=== PATIENT | female | born 1950 | race Caucasian/White ===

== ENCOUNTER → 2021-03-07 | Outpatient (CLI) | payer MEDICARE, MEDICAID, SELFPAY ==
[2021-03-13 22:06] LABS: Chlamydia By Nucleic Acid AMP Negative (Negative)
[2021-03-14 09:28] LABS: HPV APTIMA, High Risk Negative (Negative)
[2021-03-14 09:32] LABS: Gonococcus By Nucleic Acid AMP Negative (Negative)
== END | disposition home or self-care (01) ==
LOC: LABSPEC 15:15
PROVIDERS: PCP Family Medicine; Visit Provider Nurse Practitioner Women's Health
DX: N95.0 Postmenopausal bleeding (principal); Z12.4 Encounter for screening for malignant neoplasm of cervix
CPT/HCPCS: 87491; 87591; 87624; 88175; G0145

== ENCOUNTER → 2021-03-16 12:16 | Outpatient (CLI) | payer MEDICARE, MEDICAID, SELFPAY ==
--- NOTE | 2021-03-16 12:18 | US_ITS ---
STUDY: ULTRASOUND OF THE FEMALE PELVIS - COMPLETE REASON FOR EXAM: Female, 71 years old. PMB LMP: TECHNIQUE: Transabdominal and transvaginal TECHNICAL QUALITY: Adequate. COMPARISON: None. FINDINGS: The uterus is anteverted and is in a midline position. The uterus measures 8.2 x 5.5 x 3.6 cm. Normal uterine cervix. The endometrium measures 6.1 mm in thickness, and is hyperechoic. There is questionable endometrial nodule versus submucosal fibroid measuring 1.4 x 1.6 x 1.2 cm. There is no demonstrated myometrial mass. I.U.D. - The patient does not have an I.U.D. The right ovary is visualized. The right ovary measures 3.4 x 1.3 x 2.4 cm. There is no right ovarian cyst or ovarian mass. There is no visualized right adnexal mass or complex lesion. There is normal arterial and normal venous vascularity. The left ovary is visualized. The left ovary measures 2.3 x 1.9 x 1.4 4 cm. There is no left ovarian cyst or ovarian mass. There is no visualized left adnexal mass or complex lesion. There is normal arterial and normal venous vascularity. There is no fluid in the cul-de-sac. US/Transvaginal Non- IMPRESSION: Possible endometrial polyp versus submucosal fibroid measuring approximately 1.4 x 1.6 x 1.2 cm. MRI with contrast may be helpful for further evaluation if clinically warranted Electronically Signed: Bubba Velasquez MD at 16:53 EDT , Service support ,
--- NOTE | 2021-03-16 12:18 | US_ITS ---
STUDY: ULTRASOUND OF THE FEMALE PELVIS - COMPLETE REASON FOR EXAM: Female, 71 years old. PMB LMP: TECHNIQUE: Transabdominal and transvaginal TECHNICAL QUALITY: Adequate. COMPARISON: None. FINDINGS: The uterus is anteverted and is in a midline position. The uterus measures 8.2 x 5.5 x 3.6 cm. Normal uterine cervix. The endometrium measures 6.1 mm in thickness, and is hyperechoic. There is questionable endometrial nodule versus submucosal fibroid measuring 1.4 x 1.6 x 1.2 cm. There is no demonstrated myometrial mass. I.U.D. - The patient does not have an I.U.D. The right ovary is visualized. The right ovary measures 3.4 x 1.3 x 2.4 cm. There is no right ovarian cyst or ovarian mass. There is no visualized right adnexal mass or complex lesion. There is normal arterial and normal venous vascularity. The left ovary is visualized. The left ovary measures 2.3 x 1.9 x 1.4 4 cm. There is no left ovarian cyst or ovarian mass. There is no visualized left adnexal mass or complex lesion. There is normal arterial and normal venous vascularity. There is no fluid in the cul-de-sac. US/Pelvic (Non ) IMPRESSION: Possible endometrial polyp versus submucosal fibroid measuring approximately 1.4 x 1.6 x 1.2 cm. MRI with contrast may be helpful for further evaluation if clinically warranted Electronically Signed: Bubba Velasquez MD at 16:53 EDT , Service support ,
== END ==
PROVIDERS: PCP Family Medicine; Referring Provider Nurse Practitioner Women's Health; Visit Provider Nurse Practitioner Women's Health
DX: N95.0 Postmenopausal bleeding (principal)
CPT/HCPCS: 76830; 76856

== ENCOUNTER 2021-04-17 12:49 | Day surgery (SDC) | payer MEDICARE, MEDICAID, SELFPAY ==
--- NOTE | 2021-04-13 10:58 | EKG12_ITS ---
Test Reason : PREOP Blood Pressure : / mmHG Vent. Rate : 079 BPM Atrial Rate : 079 BPM P-R Int : 150 ms QRS Dur : 092 ms QT Int : 394 ms P-R-T Axes : 058 -01 027 degrees QTc Int : 451 ms Sinus rhythm with Premature atrial complexes Low voltage QRS Borderline ECG Confirmed by JOSÉ LUIS YEUNG, KRISTIAN ([id number]), editor book PARUL BECK ([id number]) on 04/13/2021 1:44:40 PM Referred By: Ayanna Higgins Confirmed By:KRISTIAN ORDONEZ MD
[2021-04-13 12:07] LABS: Hematocrit 42.8 % (37-47); Hemoglobin 13.9 g/dL (12.0-15.0); Mean Corp Hgb Conc 32.5 g/dL (32-36); Mean Corpuscular Hgb 30.3 pg (27.0-32.0); Mean Corpuscular Volume 93.2 fL (81-99); Mean Platelet Vol. 10.3 fl (6.2-12.0); Platelet Count 325 K/mm3 (150-450); RBC Distribution Width CV 13.5 % (11.6-14.6); RBC Distribution Width SD 46.1 fl (35.1-43.9); Red Blood Count 4.59 M/mm3 (4.2-5.4); White Blood Count 5.3 K/mm3 (4.4-11.0)
[2021-04-13 12:45] LABS: ALB/GLOB Ratio 0.9 RATIO (0.9-2.4); AST(SGOT) 18 U/L (15-37); Alanine Aminotransfer ALT/SGPT 32 U/L (13-56); Albumin, Serum 3.8 g/dL (3.2-5.0); Alkaline Phosphatase 65 U/L (45-117); Anion Gap 7 (5-15); BUN 25 mg/dL (7-18); Calcium,Total 9.3 mg/dL (8.5-10.1); Chloride 108 mmol/L (98-107); Creatinine, Serum 0.81 mg/dL (0.55-1.02); EST Glomerular Filtration Rate 74 mL/min (>60); Est Glom Filt Rate - Afr Amer 90 mL/min (>60); Globulin 4.4 g/dL (2.2-4.2); Glucose 96 mg/dL (74-106); Potassium 3.9 mmol/L (3.5-5.1); Protein, Total 8.2 g/dL (6.4-8.2); Sodium Level 140 mmol/L (136-145)
[2021-04-17] VITALS (7 sets, daily range): BP systolic 109–151; BP diastolic 56–80; PULSE 59–77; RESP 16–18; TEMP 36.2–36.8; O2SAT 99–100; BMI 29.3
--- NOTE | 2021-04-17 | EMB_PTH ---
PATIENT: CHANDU EDWARDS [place] [facility] [place][id number] AGE/SX: 71/F ROOM: RE04/17/[address]: Dr. Ayanna Higgins MD : 1950 BED: DIS: 04/17/2021 SPEC #: [id number] RECD: 04/18/21 07:31 STATUS: RENE MOSCOSO #: [id number] SERGIO: 04/17/21 00:[address]: Ayanna Higgins DEPT: SURGICAL PATHOLOGY RECD BY: Chapito Brown ENTERED: 04/18/21 09:41 SP TYPE: ENDOM BX/C OTHR DR: Dr. Daysi Oviedo, DO Tissues: Endometrium, NOS Procedures: Surgery Specimen Level IV HEADER OPERATION: Hysteroscopy, D & C Symphion PRE-OP DIAGNOSIS: Postmenopausal bleeding TISSUE SUBMITTED: Endometrial curettings, polyp MICROSCOPIC DIAGNOSIS Endometrial polyp and curettings: Endometrial adenocarcinoma, endometrioid type, FIGO I. AM:wandy 04/24/2021 COMMENT Case is reviewed in consultation with Dr. Cosme of [employer] who concurs with the diagnosis. Consultative report is viewable in EMR. Case has been reviewed in consultation with Dr. Cordova who concurs with the above diagnosis. CLAUDIA:EDENILSON MICROSCOPIC DESCRIPTION Slides are reviewed. GROSS DESCRIPTION Received in fixative is one container labeled with the patient's name and designated endometrial curettings and polyps. The specimen consists of multiple irregular fragments of grimm soft tissue mixed with two fragments of hemorrhagic soft tissue that in aggregate measure 7.5 x 3 x 0.3 cm. The specimen is totally submitted in three cassettes. / EDENILSON:wandy 04/18/21 TC:0 CPT: 95304
[2021-04-17] MEDS: Lactated Ringers 1,000 ML 100 ML IV (13:14)
--- NOTE | 2021-04-17 14:06 | PCM.HP.BLA ---
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 Is patient in pain?: No Allergies No Known Allergies Allergy (Verified 04/04/21 11:29) Medications alendronate 70 mg tablet 70 mg PO QWEEK 03/07/21 [History Confirmed 04/04/21] Is last menstrual period known: No Post menopausal: Yes Patient : No : No PFSH Medical History Osteopenia Surgical History H/O tubal ligation Family History Father Cancer, Onset Age: 57 Lung Mother Heart disease Sister Colon cancer Sister Breast cancer Sister Breast cancer Social History household members: significant other number of children: 3 current occupational status: retired Smoking Status: Never smoker seatbelt use: always do you feel safe at home: Yes HPI Discuss surgical options Details: CHANDU EDWARDS is a 71 year old who presents for episode of postmenopausal bleeding lasting a few days when she was in [place] for the winter, and then it happened again little bit intermittently for the last few months and this increased enough to feel like a period, she was feeling bloating, cramping and had breast tenderness. she never filled a pad an hour. she has had less bleeding lately and no significant symptoms. Female Reproductive History Menopausal Symptoms: No hot flashes, No night sweats, No difficulty concentrating and No change in libido Pregancy History 3 Elective abortions Hx Para Spontaneous abortions Hx # Term Pregnancies Ectopic pregnancies Hx # Pregnancies Multiple births # of living children ROS Const Constitutional: Denies fatigue, night sweats, weight gain or weight loss ENT ENT: Reports system reviewed and no additional complaints, except as documented Cardio Card: Denies chest pain Resp Resp: Denies cough or dyspnea GI GI: Reports as per HPI; Denies constipation, nausea or vomiting : Reports as per HPI; Denies hot flashes, nipple discharge, vaginal discharge, vaginal dryness, vaginal odor or vaginal pruritus Musc Musc: Denies arthralgias, back pain or muscle weakness Skin Skin/Breast: Denies alopecia, change in hair, dry skin, breast mass, breast pain, breast skin changes or nipple discharge Neuro Neuro: Reports system reviewed and no additional complaints, except as documented Psych Psych: Reports system reviewed and no additional complaints, except as documented; Denies change in libido or difficulty concentrating Endo Endo: Denies cold intolerance, excessive sweating, heat intolerance or polydipsia Sebastian/Lymph Hematologic/Lymphatic: Denies easy bleeding, Denies easy bruising and Denies lymphadenopathy Exam Const General: cooperative, healthy appearing, comfortable, no acute distress and well developed Orientation: alert HENMT Head: normal to inspection and normocephalic Ears: hearing grossly normal bilaterally and external ears normal Nose: external nose normal and nares normal Face and sinus: normal facial exam Neck Neck: normal visual inspection and no lymphadenopathy Thyroid: thyroid normal Chest Chest palpation & inspection: normal inspection of the chest Resp Effort & Inspection: normal respiratory effort Auscultation: clear to auscultation bilaterally Cardio Rate: regular rate Rhythm: regular rhythm Heart Sounds: S1 normal and S2 normal GI Inspection: normal to inspection and non-distended Palpation: soft and no hepatosplenomegaly Musc Other: gross motor intact no deficits, full bilateral strength Skin General: no rashes or lesions noted Neuro General: patient alert, patient awake, moves all extremities and no focal motor deficits Motor: muscle tone normal throughout Extrem General: normal to inspection and no pedal edema Psych Appearance: grossly normal Mental Status: mental status grossly normal Affect: normal affect Speech and Movement: speech and movement normal Coding Level of Care Code Off vis,est,level 4 Diagnoses Postmenopausal bleeding N95.0 Assessment and Plan Assessment and Plan (1) Postmenopausal bleeding: Status: Acute Comment: stenotic cervix/failed EMB. US 6mm lining. ? endometrial polyp. D&C/hysteroscopy/symphion w/SM to be scheduled Plan - Dr. Ayanna Higgins MD: After discussing the patient's diagnosis and treatment plan options, patient wishes to proceed with surgical management. I have discussed with the patient the risks, benefits, and alternatives of the procedure which include but are not limited to risks of anesthesia, bleeding, infection, possible damage to bowel, bladder, or surrounding vasculature which could lead to additional surgery to evaluate any complications. Patient agrees to procedure and wishes to proceed. ACOG/uptodate references given for additional information regarding procedure.
--- NOTE | 2021-04-17 16:04 | OP.PCM_ITS ---
Problems Associated Problem List Diagnoses (1) Postmenopausal bleeding: Report of Operation Date of Procedure: 04/17/21 Pre-Operative Diagnosis: see problem list Post-Operative Diagnosis: same Surgery/Procedure Performed:: D&C hysteroscopy using [facility] regional facilities specialist: None Type of Anesthesia: Local MAC Special Medications: none Specimen's removed: EMC Drains: none Estimated Blood Loss (mL): 50 Fluids Replaced: crystalloid Description of Procedure: Patient was prepped and draped in a normal sterile fashion under MAC anesthesia. A weighted speculum was placed in the vagina and the anterior lip of the cervix was grasped with a single-tooth tenaculum. A paracervical block was placed with 1% lidocaine. Cervix was progressively dilated to allow passage of a 5 mm hysteroscope. The lining was fully visualized and noted to have thickened appearance. Uterine sounded to 7 cm. Direct visual curettage was performed using the device , and all specimens were sent to pathology. All instruments were removed from the vagina and excellent hemostasis was noted. Patient was awoken and taken to recovery in stable condition. Grafts/Implants Used: none Complications none Admit VTE Documentation VTE Present on Admission: No VTE Mechan Device Prophylaxis: SCD's Multi Select Codes Urinary/Genital Urinary/Genital CPT Codes: 80618 Hysteroscopy,EMC, Polypectomy
--- NOTE | 2021-04-17 16:42 | PCM.DC ---
Discharge Instructions Diet Discharge Diet: No restrictions Activity Discharge Activity: Return to Normal Activity, May Shower and May Take a Tub Bath (after 1 week) May resume sexual activity in: 1-2 weeks Weight Bearing Status: Weight bearing as tolerated Lifting Restrictions: none Dressing / Incision Call your doctor if you observe: Fever of 101 or Higher, Using more than 1 pad per hour, Shortness of breath and Uncontrolled pain Follow Up Care Please Follow Up With: Ayanna Higgins MD When: Call [phone] to schedule appointment. Test Results: Test results from this visit will be discussed in further detail at your follow-up appointment, if applicable. Discharge Plan Admission Primary Reason for Your Visit: hysteroscopy Attending Provider: Ayanna Higgins Primary Care Provider: Daysi Oviedo Discharge Orders/Prescriptions Prescriptions: No Action alendronate [Fosamax] 70 mg tablet 70 mg PO DÍAZ RF: 0 misoprostol [Cytotec] 200 mcg tablet 200 mcg PO QPCHS Qty: 2 RF: 0 ascorbic acid (vitamin C) [Vitamin C] 500 mg Tablet 500 mg PO LUNCH RF: 0 cholecalciferol (vitamin D3) [Vitamin D3] 50 mcg (2,000 unit) Capsule 50 mcg PO LUNCH RF: 0 Referrals / Follow Up: Daysi Oviedo DO [Primary Care Provider] - Disposition Disposition (needs filled in before D/C Order can be placed): Home, Self Care
== END 2021-04-17 17:47 | disposition home or self-care (01) ==
LOC: SDC 12:49 → AC 12:53
PROVIDERS: PCP Family Medicine; Referring Provider Obstetrics & Gynecology; Visit Provider Obstetrics & Gynecology
PROC: 0UB98ZZ Excision of Uterus, Via Natural or Artificial Opening Endoscopic (ICD-10-PCS; CPT 58558; principal; 2021-04-17 14:45)
DX: N95.0 Postmenopausal bleeding (principal)
CPT/HCPCS: 00952; 58558; 36415; 80053; 85027; 86850; 86900; 86901; 88305; 93005; J7120; C1758; J2405

== ENCOUNTER → 2021-04-23 15:03 | Outpatient (CLI) | payer MEDICARE, MEDICAID, SELFPAY ==
[2021-04-23 15:18] LABS: Absolute Lymphocyte Count 1.69 X10^3/uL (0.83-4.51); Absolute Neutrophil Count 3.3 X10^3/uL (2.0-7.7); Basophil# 0.06 X10^3/uL; Eosinophil# 0.13 X10^3/uL; Eosinophils% 2.2 % (0-5); Hematocrit 40.5 % (37-47); Hemoglobin 13.4 g/dL (12.0-15.0); Lymphocyte # 1.69 X10^3/ul (0.83-4.51); Lymphocyte % 29.1 % (19-41); Mean Corp Hgb Conc 33.1 g/dL (32-36); Mean Corpuscular Hgb 30.2 pg (27.0-32.0); Mean Corpuscular Volume 91.4 fL (81-99); Mean Platelet Vol. 9.7 fl (6.2-12.0); Monocyte# 0.57 X10^3/uL; Monocyte% 9.8 % (0-10); NRBC Flagged by Analyzer 0 % (0-5); Neutrophil # 3.32 X10^3/uL (2.7-7.7); Neutrophil % 57.4 % (47-70); Platelet Count 319 K/mm3 (150-450); RBC Distribution Width CV 13.4 % (11.6-14.6); RBC Distribution Width SD 45.1 fl (35.1-43.9); Red Blood Count 4.43 M/mm3 (4.2-5.4); White Blood Count 5.8 K/mm3 (4.4-11.0)
== END ==
PROVIDERS: PCP Family Medicine; Referring Provider Nurse Practitioner Women's Health; Visit Provider Nurse Practitioner Women's Health
DX: M85.80 Other specified disorders of bone density and structure, unspecified site (principal)
CPT/HCPCS: 36415; 85025

== ENCOUNTER → 2022-03-14 | Outpatient (CLI) | payer MEDICARE, MEDICAID, SELFPAY | END | disposition home or self-care (01) | LOC: LABSPEC 13:36 | PROVIDERS: PCP Family Medicine; Referring Provider Obstetrics & Gynecology; Visit Provider Obstetrics & Gynecology | DX: R30.0 Dysuria (principal) | CPT/HCPCS: 87086; 87088 ==

== ENCOUNTER → 2022-12-06 | Outpatient (CLI) | payer MEDICARE, SELFPAY ==
--- NOTE | 2022-12-06 18:50 | CT_ITS ---
EXAM: CT CHEST, ABDOMEN AND PELVIS WITH INTRAVENOUS CONTRAST CLINICAL INDICATION: BLADDER CA/ENDOMETRIAL CA- IV ONLY TECHNIQUE: Helically acquired images were obtained of the chest, abdomen and pelvis with intravenous contrast. This CT exam was performed using one or more of the following dose reduction techniques: automated exposure control, adjustment of the mA and/or kV according to patient size, and/or use of iterative reconstruction technique. CONTRAST: 100 cc of Isovue-370 IV. RADIATION DOSE: CTDIvol = 12.29 mGy, DLP = 2182.47 mGy-cm COMPARISON: No relevant prior studies available. FINDINGS: CHEST: LUNGS AND PLEURAL SPACES: Unremarkable. No mass. No consolidation or edema. No pleural effusion or thickening. No pneumothorax. HEART: Unremarkable. Heart size is normal. No pericardial effusion. MEDIASTINUM: Unremarkable. No mediastinal or hilar adenopathy. Esophagus is unremarkable. No hiatal hernia. THYROID: Unremarkable. No thyroid lesions. ABDOMEN: LIVER: There is diffuse low-attenuation of the liver. GALLBLADDER AND BILE DUCTS: Unremarkable. No calcified gallstones. No gallbladder distention or wall edema. No intra- or extrahepatic biliary ductal dilation. PANCREAS: Unremarkable. No focal cystic or solid mass. SPLEEN: Unremarkable. Normal size without focal cystic or solid mass. ADRENALS: Unremarkable. No nodules. KIDNEYS AND URETERS: Moderate bilateral hydroureteronephrosis. Small bilateral renal cysts. Normal renal size and position. STOMACH AND BOWEL: Scattered diverticula without diverticulitis. No stomach or bowel distention. PELVIS: APPENDIX: Normal appendix. BLADDER: Large lobulated mass measuring 4.8 x 6 x 7.5 cm involving the base of the bladder. REPRODUCTIVE: Hysterectomy. CHEST, ABDOMEN and PELVIS: INTRAPERITONEAL SPACE: Unremarkable. No ascites or other fluid collection. No free air. BONES/JOINTS: Unremarkable. No suspicious lytic or blastic abnormality. SOFT TISSUES: Unremarkable. No discrete abdominal or pelvic wall hernia. VASCULATURE: Unremarkable. Aorta is non-dilated. No aortic dissection. No obvious central pulmonary embolism although this study was not performed with the pulmonary embolism protocol. LYMPH NODES: Unremarkable. No enlarged lymph nodes. CT/CT Chest, Abd, Pel w/Contrast IMPRESSION: 1. Large lobulated mass measuring 4.8 x 6 x 7.5 cm involving the base of the bladder. 2. Moderate bilateral hydroureteronephrosis. 3. Scattered diverticula without diverticulitis. 4. Hysterectomy. 5. Fatty liver. 6. Small bilateral renal cysts. No follow-up imaging necessary. Electronically Signed: Irvin Warner MD at 16:29 EDT ,
== END | disposition home or self-care (01) ==
LOC: CT 18:36
PROVIDERS: PCP Family Medicine; Referring Provider Internal Medicine Medical Oncology; Visit Provider Internal Medicine Medical Oncology
DX: C67.9 Malignant neoplasm of bladder, unspecified (principal)
CPT/HCPCS: 71260; 74177; Q9967

== ENCOUNTER → 2022-12-11 | Outpatient (CLI) | payer MEDICARE, SELFPAY ==
--- NOTE | 2022-12-11 08:33 | MRI_ITS ---
EXAM: MR PELVIS WITHOUT AND WITH INTRAVENOUS CONTRAST CLINICAL INDICATION: MONITOR ENDOMETRIAL CA/BLADDER CA, DIFFICULTY UTINATING TECHNIQUE: Multiplanar and multisequence MR images of the pelvis without and with intravenous contrast. CONTRAST: IV 13CC CLARISCAN COMPARISON: No relevant prior studies available. FINDINGS: KIDNEYS AND URETERS: Bilateral hydroureter is partially visualized but grossly similar since recent CT. APPENDIX: Not seen but no evidence of acute appendicitis. INTRAPERITONEAL SPACE: Unremarkable. No ascites or other fluid collection. BLADDER: Large, lobular mass (with enhancement) in the posterior urinary bladder measuring 4.7 x 8.4 x 6.2 cm is unchanged since recent CT. The mass is seen encasing the left UVJ on image 19 series 9 and the right UVJ on image 21 of series 9. OVARIES: Not seen. UTERUS/CERVIX: Uterus is surgically absent. No pelvic mass or fluid collection. VAGINA: The vaginal cavity is decompressed but no obvious vaginal wall mass. BONES/JOINTS: Unremarkable. No suspicious lytic or blastic abnormality. SOFT TISSUES: Unremarkable. No pelvic wall hernia. LYMPH NODES: Unremarkable. No pelvic sidewall adenopathy. No iliac chain adenopathy. MRI/Pelvis W/WO Contrast IMPRESSION: 1. Large lobular mass of the urinary bladder, stable since most recent CT. Bilateral hydroureter indicating obstruction at the bilateral UVJ. 2. Hysterectomy. No pelvic/iliac chain adenopathy. Electronically Signed: Leandro Jackson (Brooks), at 16:29 EDT Reading Location ID and State: [facility] / [place] , Service support ,
== END | disposition home or self-care (01) ==
LOC: MRI 07:55
PROVIDERS: PCP Family Medicine; Referring Provider Internal Medicine Medical Oncology; Visit Provider Internal Medicine Medical Oncology
DX: C54.1 Malignant neoplasm of endometrium (principal); C67.9 Malignant neoplasm of bladder, unspecified
CPT/HCPCS: 72197; A9575

== ENCOUNTER 2022-12-24 15:37 | Inpatient (IN) | payer MEDICARE, SELFPAY ==
[2022-12-24 17:01] VITALS: BMI 29.0
--- NOTE | 2022-12-24 17:05 | HP.PCM_ITS ---
HPI - General General Date of Admission: 12/24/22 Date of Service: 12/24/22 Chief Complaint: bladder cancer HPI Narrative CHANDU EDWARDS, is a 72 F who presents with invasive bladder cancer bladder neck with retention of urine and bilateral hydronephrosis. This is a ffemale who about six months ago start having bleeding and in [place] she was found to have a large tumor at the bladder neck she reports having only a partial resection of this tumor in [place] by a urologist. She now was back in [place] and she saw me today and consultation I attempted the place a catheter in the bladder because on ultrasound she had retention of urine and was not successful so today she was admitted to do a complete workup a metastatic workup her take her surgery tomorrow for a cystoscopy transurethral resection bladder tumor and fully placement. I suspect she has invasive cancer and will probably benefit from definitive cystectomy. [facility] Medical History Bladder mass GERD (gastroesophageal reflux disease) History of cardiac murmur Hoarseness Hyperlipidemia Kidney stone Non-smoker Osteopenia Home Medications alendronate 70 mg tablet (Fosamax) 70 mg PO DÍAZ 03/07/21 [History Last Taken Unknown] cholecalciferol (vitamin D3) 50 mcg (2,000 unit) capsule (Vitamin D3) 50 mcg PO LUNCH supplement 04/12/21 [History Last Taken Unknown] cranberry fruit concentrate 250 mg chewable tablet (Azo Cranberry) 500 mg PO DAILY 12/04/22 [History Last Taken Unknown] ibuprofen 200 mg tablet (Advil) 200 mg PO Q6H PRN 12/04/22 [History Last Taken Unknown] naproxen sodium 220 mg capsule (Aleve) 220 mg PO BID PRN 12/04/22 [History Last Taken Unknown] Allergy/AdvReac Type Severity Reaction Status Date / Time No Known Allergies Allergy Verified 12/16/22 15:05 Family History Father Cancer, Onset Age: 57 Lung Mother Heart disease Osteopetrosis Sister Colon cancer Sister Breast cancer Sister Breast cancer Brother Cancer lung Surgical History H/O tubal ligation History of colonoscopy History of cystoscopy History of hysterectomy S/P dilation and curettage (~04/17/21) Social History household members: significant other number of children: 3 current occupational status: retired Smoking Status: Never smoker alcohol intake: never substance use type: does not use caffeine: Yes what type of physical activity do you participate in: walking seatbelt use: always do you feel safe at home: Yes additional social history: retired- [employer] ROS Genitourinary Genitourinary: Reports hematuria and urinary incontinence Physical Exam Const alert and oriented x3 General Appearance: cooperative HEENT normocephalic, head/scalp atraumatic, EAC's normal and TM's normal bilaterally Eyes PERRL and EOMs intact bilaterally Pupil: sluggish Neck no lymphadenopathy, supple and no JVD General: trachea midline Lymph Lymphatic: no lymphadenopathy noted, lymphedema and lymphadenopathy Resp normal respiratory effort, normal air movement and clear to auscultation bilaterally Cardio regular rate, regular rhythm and peripheral pulses 2+ throughout GI soft to palpation, non-tender and non-distended Extremity normal capillary refill and no clubbing, cyanosis or edema General Extremity: no tenderness to palpation of joints or extremities Skin no rashes or lesions noted General Skin Exam: turgor normal Lesions: no lesions Rashes: no rashes Neuro CN's II-XII intact bilaterally Speech: speech normal Motor Exam: strength 5/5 throughout; Negative for general weakness Psych thought process normal, cooperative and affect normal Appearance: appropriate Results Medical Records Data Attestation: I reviewed the patient's medical records Lab / Micro Data Attestation: I reviewed the patient's lab results. Assessment & Plan Assessment/Plan (1) Bladder cancer: QUALIFIERS: Bladder location: trigone Qualified Code(s): C67.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 PLAN: 72-year-old female with what appears a be invasive bladder cancer fairly fixed I bimanual exam should be admitted today for metastatic workup get a CAT scan tonight and bloodwork and ampulla benign plan for surgery tomorrow for a transurethral resection of bladder tumor and goodwin catheter placement (2) Endometrial cancer: (3) INVENTORY SPECIALIST MANAGER exam for high-risk Medicare patient: (4) Dysuria:
[2022-12-24 17:44] VITALS: BP 133/82; PULSE 73; RESP 17; TEMP 36.8; O2SAT 99
[2022-12-24 18:55] LABS: Hematocrit 35.7 % (37-47); Hemoglobin 11.2 g/dL (12.0-15.0); Mean Corp Hgb Conc 31.4 g/dL (32-36); Mean Corpuscular Hgb 30.3 pg (27.0-32.0); Mean Corpuscular Volume 96.5 fL (81-99); Mean Platelet Vol. 9.9 fl (6.2-12.0); Platelet Count 376 K/mm3 (150-450); RBC Distribution Width CV 12.6 % (11.6-14.6); White Blood Count 9.1 K/mm3 (4.4-11.0)
[2022-12-24] MEDS: 0.9% Normal Saline 1,000 ML 50 ML IV (18:58)
[2022-12-24 19:12] LABS: ALB/GLOB Ratio 0.6 RATIO (0.9-2.4); AST(SGOT) 16 U/L (15-37); Alanine Aminotransfer ALT/SGPT 14 U/L (13-56); Alkaline Phosphatase 83 U/L (45-117); Anion Gap 7 (5-15); BUN 38 mg/dL (7-18); BUN/Creat Ratio 13.1 RATIO (10-20); Calcium,Total 8.9 mg/dL (8.5-10.1); Chloride 116 mmol/L (98-107); EST Glomerular Filtration Rate 17 mL/min (>60); Est Glom Filt Rate - Afr Amer 20 mL/min (>60); Estimated Creatinine Clearance 12.41 ml/min; Globulin 4.8 g/dL (2.2-4.2); Glucose 125 mg/dL (74-106); Potassium 4.2 mmol/L (3.5-5.1); Protein, Total 7.8 g/dL (6.4-8.2); Sodium Level 144 mmol/L (136-145)
[2022-12-24 20:56] VITALS: BP 151/77; PULSE 75; RESP 16; TEMP 37.2; O2SAT 100
[2022-12-24] MEDS: Cefazolin 1 GM/50 ML BAG IV (21:09)
[2022-12-24] MEDS: Docusate Sodium 100 MG Capsule 200 MG PO (21:09)
[2022-12-24] MEDS: HYDROcodone Bitartrate/Apap 5/325 Tablet PO (23:51)
[2022-12-25] VITALS (9 sets, daily range): BP systolic 112–160; BP diastolic 51–96; PULSE 62–100; RESP 12–20; TEMP 36.7–37.2; O2SAT 87–100; BMI 29.0
[2022-12-25] MEDS: Cefazolin 1 GM/50 ML BAG IV ×2 (05:01→21:14)
--- NOTE | 2022-12-25 10:44 | CT_ITS ---
PROCEDURE: CT GUIDANCE DURING PERCUTANEOUS NEPHROSTOMY PROCEDURE. DATE OF EXAMINATION: December 25, 2022. INDICATION: Female, 72 years old. Right hydronephrosis and right hydroureter. PHYSICIAN: Morris Isaac M.D. CONSENT: The patient''s history and physical findings were reviewed. Prior to the procedure the percutaneous nephrostomy procedure as well as the benefits and possible complications including bleeding and infection were explained to the patient. Informed consent was signed. SEDATION: 3 mg of Versed and 75 mcg of fentanyl. Conscious sedation protocol was followed. The patient was independently monitored by the department nurse. Individualized dose optimization techniques were utilized. TECHNIQUE: Under CT guidance, an 8 Macedonian percutaneous nephrostomy catheter was placed into the right renal pelvis and proximal right ureter. Urine was removed. The catheter was left for gravity drainage. Following the procedure, there is a small right perinephric hematoma. CT/Nephrotube Placement CT IMPRESSION: 1. Successful right percutaneous nephrostomy catheter placement. 2. The patient tolerated the procedure well. 3. Conscious sedation protocol was followed. Electronically Signed: Morris Isaac MD at 14:28 EDT ,
--- NOTE | 2022-12-25 10:47 | PCM.PN.GU ---
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 Objective Data Objective Data Vital Signs: Vital Signs Temp Pulse Resp BP Pulse Ox O2 Del Method 98.8 F 100 18 140/81 H 100 Room Air 12/25/22 08:52 12/25/22 08:52 12/25/22 08:52 12/25/22 08:52 12/25/22 08:52 12/25/22 08:52 Oxygen Delivery Method Room Air Weight: 67.6 kg Body Mass Index (BMI) 29.0 Intake & Output: Intake and Output for Last 24 Hours 12/23/22 12/24/22 12/25/22 23:59 23:59 23:59 Intake Total 50 / 50 50 / 50 Output Total 850 / 850 Balance 50 / -250 -800 / -800 Lab / Micro Data 12/24/22 18:37 12/24/22 18:37 Labs: Laboratory Results - last 24 hr 12/24/22 18:37: WBC 9.1, RBC 3.70 L, Hgb 11.2 L, Hct 35.7 L, MCV 96.5, MCH 30.3, MCHC 31.4 L, RDW Std Deviation 45.0 H, RDW Coeff of Harrison 12.6, Plt Count 376, MPV 9.9, Sodium 144, Potassium 4.2, Chloride 116 H, Carbon Dioxide 21.0, Anion Gap 7, BUN 38 H, Creatinine 2.90 H, Estim Creat Clear Calc 12.41, Est GFR (MDRD) Af Amer 20 L, Est GFR (MDRD) Non-Af 17 L, BUN/Creatinine Ratio 13.1, Glucose 125 H, Calcium 8.9, Total Bilirubin 0.30, AST 16, ALT 14, Alkaline Phosphatase 83, Total Protein 7.8, Albumin 3.0 L, Globulin 4.8 H, Albumin/Globulin Ratio 0.6 L Physical Exam Const alert and oriented x3 General Appearance: cooperative HEENT normocephalic, head/scalp atraumatic, EAC's normal and TM's normal bilaterally Eyes PERRL and EOMs intact bilaterally Pupil: sluggish Neck no lymphadenopathy, supple and no JVD General: trachea midline Lymph Lymphatic: no lymphadenopathy noted, lymphedema and lymphadenopathy Resp normal respiratory effort, normal air movement and clear to auscultation bilaterally Cardio regular rate, regular rhythm and peripheral pulses 2+ throughout GI soft to palpation, non-tender and non-distended Extremity normal capillary refill and no clubbing, cyanosis or edema General Extremity: no tenderness to palpation of joints or extremities Skin no rashes or lesions noted General Skin Exam: turgor normal Lesions: no lesions Rashes: no rashes Neuro CN's II-XII intact bilaterally Speech: speech normal Motor Exam: strength 5/5 throughout; Negative for general weakness Psych thought process normal, cooperative and affect normal Appearance: appropriate Assessment & Plan Assessment/Plan (1) Bladder cancer: QUALIFIERS: Bladder location: trigone Qualified Code(s): C67.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
[2022-12-25] MEDS: Morphine 2 MG/ML Syringe IV ×2 (11:16→14:29)
[2022-12-25] MEDS: 0.9% Normal Saline 1,000 ML 50 ML IV (11:17)
[2022-12-25] MEDS: Ondansetron 4 MG/2 ML Vial IV (11:25)
--- NOTE | 2022-12-25 11:39 | NURSING ---
lab updated to draw stat lab work for procedure
--- NOTE | 2022-12-25 11:53 | CT_ITS ---
PROCEDURE: Left percutaneous nephrostomy. DATE OF EXAMINATION: December 25, 2022. INDICATION: Female, 72 years old. Left hydronephrosis and left hydroureter. PHYSICIAN: Dr. Poncho Paula RADIATION DOSAGE (If Supplied By Facility): CTDIvol = ( 18.99 ) mGy, DLP = ( 1743.66 ) mGycm CONSENT: The risks, benefits and alternatives to the procedure were explained to the patient, and the patient agreed to the procedure and signed the consent. SEDATION: STERILE BARRIER TECHNIQUE: The following sterile barrier precautions were used during the procedure: hand hygiene; use of 2% chlorhexidine aseptic; use of a cap, mask, sterile gown, sterile gloves, sterile full body drape, and a large sterile sheet. PROCEDURE/TECHNIQUE: (All elements of maximal sterile barrier technique followed, including US elements as applicable) The risks, benefits, and alternatives to the procedure were explained to patient, and the patient agreed to the procedure and signed a consent form for the procedure. A timeout was performed to confirm the patient''s identity, the type of procedure, to be performed and the site of entry. The procedure as well as the benefits and possible complications including infection and bleeding with sprain to the patient. Consent was signed. The patient was in the prone position. Overlying skin was prepped and draped in the usual sterile fashion. The patient received conscious sedation. The patient received 3 mg of Versed and 75 mcg of fentanyl intravenously. The patient was independently monitored by the department nurse. Following local anesthetic application, an 8 [place] percutaneous nephrostomy catheter was placed into the left renal pelvis. The catheter was secured. The patient tolerated the procedure well. CT/Nephrotube Placement CT IMPRESSION: Successful left percutaneous nephrostomy tube placement. The current sedation protocol was followed. Electronically Signed: Morris Isaac MD at 14:32 EDT ,
--- NOTE | 2022-12-25 12:01 | CASEMGMT ---
CARINA CM NOTE: Insurance review [facility] hospitals [facility] if transfer is recommended is as follows: [facility], Jackie, [facility], [facility], [facility], [facility], [facility], [facility] ([facility]), and . Rory JACKSON RN CM
[2022-12-25 12:12] LABS: International Normalized Ratio 1.2; Partial Thromboplast Time 30.5 Seconds (24.1-36.2); Prothrombin Time (Protime)PT. 14.8 SECONDS (11.7-14.9)
[2022-12-25] MEDS: Midazolam 2 MG/2 ML Syringe IV ×2 (12:30→13:33)
[2022-12-25] MEDS: fentaNYL 100 MCG/2 ML Ampul IV ×2 (12:32→13:33)
[2022-12-25] MEDS: 0.9% Saline Lock 10 ML Syringe IV ×2 (12:32→23:10)
[2022-12-25] MEDS: Lidocaine 2% (20 ml mdv) 20 ML Vial INFILT (12:42)
--- NOTE | 2022-12-25 14:12 | NURSING ---
pt remains off unit
[2022-12-25] MEDS: HYDROcodone Bitartrate/Apap 5/325 Tablet PO ×2 (17:03→23:09)
[2022-12-26 02:27] VITALS: BP 106/62; PULSE 86; RESP 16; TEMP 36.9; O2SAT 94
[2022-12-26 06:53] LABS: Hematocrit 29.4 % (37-47); Hemoglobin 9.4 g/dL (12.0-15.0); Mean Corpuscular Hgb 30.8 pg (27.0-32.0); Mean Corpuscular Volume 96.4 fL (81-99); Mean Platelet Vol. 10.1 fl (6.2-12.0); Platelet Count 312 K/mm3 (150-450); RBC Distribution Width CV 12.8 % (11.6-14.6); RBC Distribution Width SD 45.4 fl (35.1-43.9); Red Blood Count 3.05 M/mm3 (4.2-5.4); White Blood Count 9.9 K/mm3 (4.4-11.0)
[2022-12-26 07:25] LABS: Anion Gap 5 (5-15); BUN 29 mg/dL (7-18); BUN/Creat Ratio 13.6 RATIO (10-20); Calcium,Total 8.6 mg/dL (8.5-10.1); Chloride 116 mmol/L (98-107); Creatinine, Serum 2.13 mg/dL (0.55-1.02); EST Glomerular Filtration Rate 24 mL/min (>60); Est Glom Filt Rate - Afr Amer 29 mL/min (>60); Glucose 111 mg/dL (74-106); Sodium Level 142 mmol/L (136-145)
--- NOTE | 2022-12-26 07:25 | PN.URO_ITS ---
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 Spoke to the [facility] yesterday about transfer they recommended nephrostomy tube stabilization and outpatient follow-up. Patient was agreeable with this. She is clinically stable at this point nephrostomy tubes are both draining well I did secure both the tubes hopefully they will fall out. Today she can get up and walk around we will check a creatinine today we will check a creatinine tomorrow and hopefully tomorrow we can discharge her home. Objective Data Objective Data Vital Signs: Vital Signs Temp Pulse Resp BP Pulse Ox O2 Del Method O2 Flow Rate 98.4 F 86 16 106/62 94 Room Air 2 12/26/22 02:12/26/22 02:27 12/26/22 02:27 12/26/22 02:27 12/26/22 02:12/26/22 02:12/25/22 12:30 Oxygen Flow Rate (L/min) [1345 2 ] Oxygen Flow Rate (L/min) [1340 2 ] Oxygen Flow Rate (L/min) [1335 2 ] Oxygen Flow Rate (L/min) [1330 2 ] Oxygen Flow Rate (L/min) [1325 2 ] Oxygen Flow Rate (L/min) [1320 2 ] Oxygen Flow Rate (L/min) [10] 2 Oxygen Flow Rate (L/min) [9] 2 Oxygen Flow Rate (L/min) [8] 2 Oxygen Flow Rate (L/min) [7] 2 Oxygen Flow Rate (L/min) [6] 2 Oxygen Flow Rate (L/min) [5] 2 Oxygen Flow Rate (L/min) [4] 2 Oxygen Flow Rate (L/min) [3] 2 Oxygen Flow Rate (L/min) [2] 2 Oxygen Delivery Method [1345] Nasal Cannula Oxygen Delivery Method [1340] Nasal Cannula Oxygen Delivery Method [1335] Nasal Cannula Oxygen Delivery Method [1330] Nasal Cannula Oxygen Delivery Method [1325] Nasal Cannula Oxygen Delivery Method [1320] Nasal Cannula Oxygen Delivery Method [10] Nasal Cannula Oxygen Delivery Method [9] Nasal Cannula Oxygen Delivery Method [8] Nasal Cannula Oxygen Delivery Method [7] Nasal Cannula Oxygen Delivery Method [6] Nasal Cannula Oxygen Delivery Method [5] Nasal Cannula Oxygen Delivery Method [4] Nasal Cannula Oxygen Delivery Method [3] Nasal Cannula Oxygen Delivery Method [2] Nasal Cannula Oxygen Delivery Method [1 ( Room Air Initial Baseline)] Oxygen Delivery Method Room Air Weight: 67.6 kg Body Mass Index (BMI) 29.0 Intake & Output: Intake and Output for Last 24 Hours 12/24/22 12/25/22 12/26/22 23:59 23:59 23:59 Intake Total 50 / 50 1943.83 / 1943.83 Output Total 3125 / 3125 250 / 250 Balance 50 / -250 -1181.17 / -1181.17 -250 / -250 Lab / Micro Data 12/26/22 06:05 12/26/22 06:05 Labs: Laboratory Results - last 24 hr 12/25/22 11:53: PT 14.8, INR 1.2, APTT 30.5 12/26/22 06:05: WBC 9.9, RBC 3.05 L, Hgb 9.4 L, Hct 29.4 L, MCV 96.4, MCH 30.8, MCHC 32.0, RDW Std Deviation 45.4 H, RDW Coeff of Harrison 12.8, Plt Count 312, MPV 10.1, Sodium 142, Potassium 4.0, Chloride 116 H, Carbon Dioxide 21.0, Anion Gap 5, BUN 29 H, Creatinine 2.13 H, Estim Creat Clear Calc 16.90, Est GFR (MDRD) Af Amer 29 L, Est GFR (MDRD) Non-Af 24 L, BUN/Creatinine Ratio 13.6, Glucose 111 H, Calcium 8.6 Radiography Diagnostic Testing: Radiology Impression Nephrostomy Tube Change 12/25/22 10:44 IMPRESSION: 1. Successful right percutaneous nephrostomy catheter placement. 2. The patient tolerated the procedure well. 3. Conscious sedation protocol was followed. Electronically Signed: Morris Isaac MD at 14:28 EDT , Nephrostomy Tube Change 12/25/22 11:53 IMPRESSION: Successful left percutaneous nephrostomy tube placement. The current sedation protocol was followed. Electronically Signed: Morris Isaac MD at 14:32 EDT ,
[2022-12-26 07:32] VITALS: O2SAT 93
[2022-12-26] MEDS: Morphine 2 MG/ML Syringe IV ×3 (07:58→19:57)
[2022-12-26] MEDS: Docusate Sodium 100 MG Capsule 200 MG PO (07:59)
[2022-12-26] MEDS: 0.9% Normal Saline 1,000 ML 50 ML IV (08:06)
[2022-12-26 08:30] VITALS: BP 124/69; PULSE 78; RESP 16; TEMP 37.3; O2SAT 99
[2022-12-26] MEDS: Cefazolin 1 GM/50 ML BAG IV ×2 (09:31→21:57)
[2022-12-26] MEDS: HYDROcodone Bitartrate/Apap 5/325 Tablet PO ×3 (09:31→21:57)
[2022-12-26 14:30] VITALS: BP 133/71; PULSE 78; RESP 16; TEMP 36.9; O2SAT 100
--- NOTE | 2022-12-26 14:45 | CASEMGMT ---
RN?CM?AN[employer]OID [employer] DEVELOPER?CM?to room to meet with patient for initial transition planning/care coordination?assessment.?RN?CM?introduced self and role at [facility].? Pt voices understanding and consents to?assessment?at this time.? Pt resting in bed in no distress at this time.? Pt is A/O at this time and answers all questions appropriately.?? Care providers, pharmacy, and demographics verified/updated at this time. PCP: Dr Oviedo Specialists: Dr Gamble-urology, Dr Schmitz-oncology. Pt has appt scheduled w/Dr Westbrook (surgical urologist) @ [facility] 01/09/23. [facility]erred [facility]acy: [facility] Insurance: [employer] Prescription Benefit:?Yes Living Will/HPOA:?Pt does not currently have LW/HCPOA and declines info at this time.? Pt made aware that she can contact as an out-pt and make appt in the future if she decides she would like to talk with someone about this or would like to utilize [facility] social work for advanced directive completion. LNOK: 3 children. One dtr is Lovely. Sig other, Gustavo. Living Arrangements: Lives w/sig other, Gustavo, in one-story home w/one step to enter. Indep w/ADL's and IADL's and manages her own medications and appts. Transportation:?Pt does not drive. Sig other, Gustavo, provides transportation. DME: ? Denies using any DME and denies needs.? HHC/SNF: No hx of SNF. Had HHC for a couple of visits after being in the hospital in [place]. Denies need for HHC at this time. Pt wishes to return home and states has no concerns with going home at time of discharge.? CM?to follow for any discharge planning/needs.? Pt voices no further concerns/needs at this time.? Advised pt to ask for?CM?if any further questions/concerns/needs arise.? Voices understanding. PLAN:??Home Rory BSN?RN?CM
[2022-12-26] MEDS: 0.9% Saline Lock 10 ML Syringe IV (17:22)
[2022-12-26 20:05] VITALS: BP 139/79; PULSE 87; RESP 18; TEMP 37.3; O2SAT 99
--- NOTE | 2022-12-26 21:00 | PN.URO_ITS ---
Subjective Subjective Still have pain in bladder, unable to place goodwin in bladder due cancer blocking urethra completely, has a large mass in base of bladder, just had nephrostomy tubes bilaterally but having severe pain in bladder and bleeding from urethra. placed a second call to [facility] to inpatient transfer, she has been already accepted as patient by Dr rosario awaiting call back from [facility] to arrange transfer. Objective Data Objective Data Vital Signs: Vital Signs Temp Pulse Resp BP Pulse Ox O2 Del Method O2 Flow Rate 99.1 F 87 18 139/79 H 99 Room Air 2 12/26/22 20:05 12/26/22 20:05 12/26/22 20:05 12/26/22 20:05 12/26/22 20:05 12/26/22 20:05 12/25/22 12:30 Oxygen Flow Rate (L/min) [1345 2 ] Oxygen Flow Rate (L/min) [1340 2 ] Oxygen Flow Rate (L/min) [1335 2 ] Oxygen Flow Rate (L/min) [1330 2 ] Oxygen Flow Rate (L/min) [1325 2 ] Oxygen Flow Rate (L/min) [1320 2 ] Oxygen Flow Rate (L/min) [10] 2 Oxygen Flow Rate (L/min) [9] 2 Oxygen Flow Rate (L/min) [8] 2 Oxygen Flow Rate (L/min) [7] 2 Oxygen Flow Rate (L/min) [6] 2 Oxygen Flow Rate (L/min) [5] 2 Oxygen Flow Rate (L/min) [4] 2 Oxygen Flow Rate (L/min) [3] 2 Oxygen Flow Rate (L/min) [2] 2 Oxygen Delivery Method [1345] Nasal Cannula Oxygen Delivery Method [1340] Nasal Cannula Oxygen Delivery Method [1335] Nasal Cannula Oxygen Delivery Method [1330] Nasal Cannula Oxygen Delivery Method [1325] Nasal Cannula Oxygen Delivery Method [1320] Nasal Cannula Oxygen Delivery Method [10] Nasal Cannula Oxygen Delivery Method [9] Nasal Cannula Oxygen Delivery Method [8] Nasal Cannula Oxygen Delivery Method [7] Nasal Cannula Oxygen Delivery Method [6] Nasal Cannula Oxygen Delivery Method [5] Nasal Cannula Oxygen Delivery Method [4] Nasal Cannula Oxygen Delivery Method [3] Nasal Cannula Oxygen Delivery Method [2] Nasal Cannula Oxygen Delivery Method [1 ( Room Air Initial Baseline)] Oxygen Delivery Method Room Air Weight: 67.6 kg Body Mass Index (BMI) 29.0 Intake & Output: Intake and Output for Last 24 Hours 12/24/22 12/25/22 12/26/22 23:59 23:59 23:59 Intake Total 50 / 50 1943.83 / 1943.83 1050 / 1050 Output Total 3125 / 3125 450 / 450 Balance 50 / -250 -1181.17 / -1181.17 600 / 600 Lab / Micro Data 12/26/22 06:05 12/26/22 06:05 Labs: Laboratory Results - last 24 hr 12/26/22 06:05: WBC 9.9, RBC 3.05 L, Hgb 9.4 L, Hct 29.4 L, MCV 96.4, MCH 30.8, MCHC 32.0, RDW Std Deviation 45.4 H, RDW Coeff of Harrison 12.8, Plt Count 312, MPV 10.1, Sodium 142, Potassium 4.0, Chloride 116 H, Carbon Dioxide 21.0, Anion Gap 5, BUN 29 H, Creatinine 2.13 H, Estim Creat Clear Calc 16.90, Est GFR (MDRD) Af Amer 29 L, Est GFR (MDRD) Non-Af 24 L, BUN/Creatinine Ratio 13.6, Glucose 111 H, Calcium 8.6
[2022-12-26] MEDS: Oxybutynin 5 MG Tablet 10 MG PO (21:57)
--- NOTE | 2022-12-26 22:31 | NURSING ---
Spoke to Dr. Gamble again , states he called [facility], put a transfer order in. pt will be transferred to main campus when bed is available. ordered Oxybutynin and states to medicate pt morphine for pain for the mean time. made pt aware of the plan. pt is agreeable to plan.
--- NOTE | 2022-12-26 22:35 | NURSING ---
spoke to Bailee from [facility], states will need to arrange transport for pt when bed is available, states their census is high and pt will be provided with bed in timely manner. will need to send copy of pts medical record with pt upon transfer. charge nurse made aware.
[2022-12-27 02:05] VITALS: BP 124/63; PULSE 65; RESP 16; TEMP 37.1; O2SAT 96
[2022-12-27] MEDS: 0.9% Normal Saline 1,000 ML 50 ML IV (04:32)
[2022-12-27 07:20] LABS: Anion Gap 6 (5-15); BUN 21 mg/dL (7-18); BUN/Creat Ratio 11.5 RATIO (10-20); Calcium,Total 8.5 mg/dL (8.5-10.1); Chloride 112 mmol/L (98-107); Creatinine, Serum 1.83 mg/dL (0.55-1.02); EST Glomerular Filtration Rate 29 mL/min (>60); Est Glom Filt Rate - Afr Amer 35 mL/min (>60); Estimated Creatinine Clearance 19.67 ml/min; Glucose 99 mg/dL (74-106); Potassium 3.9 mmol/L (3.5-5.1); Sodium Level 140 mmol/L (136-145)
--- NOTE | 2022-12-27 07:43 | NURSING ---
called [facility] transfer center, aware pt still awaiting bed assignment, no bed at this time.
[2022-12-27 08:01] VITALS: O2SAT 97
[2022-12-27 08:10] VITALS: BP 136/86; PULSE 92; RESP 18; TEMP 36.8; O2SAT 96
[2022-12-27] MEDS: 0.9% Saline Lock 10 ML Syringe IV (09:40)
[2022-12-27] MEDS: Oxybutynin 5 MG Tablet 10 MG PO (10:04)
[2022-12-27] MEDS: Cefazolin 1 GM/50 ML BAG IV ×2 (10:04→21:28)
[2022-12-27] MEDS: Docusate Sodium 100 MG Capsule 200 MG PO ×2 (10:04→21:28)
[2022-12-27] MEDS: HYDROcodone Bitartrate/Apap 5/325 Tablet PO ×2 (13:33→23:05)
[2022-12-27 14:10] VITALS: BP 121/70; PULSE 104; RESP 18; TEMP 38.8; O2SAT 94
[2022-12-27] MEDS: Acetaminophen 325 MG Tablet PO (14:14)
--- NOTE | 2022-12-27 16:15 | NURSING ---
talked with Gladys at [facility] transfer center, aware still no bed assignment available for patient.
[2022-12-27 19:41] VITALS: BP 102/75; PULSE 88; RESP 18; TEMP 37.2; O2SAT 100
[2022-12-27] MEDS: Morphine 2 MG/ML Syringe IV (19:47)
[2022-12-28] MEDS: 0.9% Normal Saline 1,000 ML 50 ML IV ×2 (01:32→21:17)
[2022-12-28 02:54] VITALS: BP 112/69; PULSE 88; RESP 16; TEMP 36.9; O2SAT 95
[2022-12-28 08:00] VITALS: BP 109/76; PULSE 99; RESP 16; TEMP 37.2; O2SAT 94
[2022-12-28] MEDS: Morphine 2 MG/ML Syringe IV (08:02)
--- NOTE | 2022-12-28 08:02 | PCM.PN.GU ---
Subjective Subjective still awaiting transfer to [facility] for bladder cancer has bilateral neohrostomy tubes pain is better but rocio has severe bladder spasms Objective Data Objective Data Vital Signs: Vital Signs Temp Pulse Resp BP Pulse Ox O2 Del Method O2 Flow Rate 98.5 F 88 16 112/69 95 Room Air 2 12/28/22 02:54 12/28/22 02:54 12/28/22 02:54 12/28/22 02:54 12/28/22 02:54 12/28/22 02:54 12/25/22 12:30 Oxygen Flow Rate (L/min) [1345 2 ] Oxygen Flow Rate (L/min) [1340 2 ] Oxygen Flow Rate (L/min) [1335 2 ] Oxygen Flow Rate (L/min) [1330 2 ] Oxygen Flow Rate (L/min) [1325 2 ] Oxygen Flow Rate (L/min) [1320 2 ] Oxygen Flow Rate (L/min) [10] 2 Oxygen Flow Rate (L/min) [9] 2 Oxygen Flow Rate (L/min) [8] 2 Oxygen Flow Rate (L/min) [7] 2 Oxygen Flow Rate (L/min) [6] 2 Oxygen Flow Rate (L/min) [5] 2 Oxygen Flow Rate (L/min) [4] 2 Oxygen Flow Rate (L/min) [3] 2 Oxygen Flow Rate (L/min) [2] 2 Oxygen Delivery Method [1345] Nasal Cannula Oxygen Delivery Method [1340] Nasal Cannula Oxygen Delivery Method [1335] Nasal Cannula Oxygen Delivery Method [1330] Nasal Cannula Oxygen Delivery Method [1325] Nasal Cannula Oxygen Delivery Method [1320] Nasal Cannula Oxygen Delivery Method [10] Nasal Cannula Oxygen Delivery Method [9] Nasal Cannula Oxygen Delivery Method [8] Nasal Cannula Oxygen Delivery Method [7] Nasal Cannula Oxygen Delivery Method [6] Nasal Cannula Oxygen Delivery Method [5] Nasal Cannula Oxygen Delivery Method [4] Nasal Cannula Oxygen Delivery Method [3] Nasal Cannula Oxygen Delivery Method [2] Nasal Cannula Oxygen Delivery Method [1 ( Room Air Initial Baseline)] Oxygen Delivery Method Room Air Weight: 67.6 kg Body Mass Index (BMI) 29.0 Intake & Output: Intake and Output for Last 24 Hours 12/26/22 12/27/22 12/28/22 23:59 23:59 23:59 Intake Total 1100 / 1100 1946.67 / 1946.67 153.33 / 153.33 Output Total 850 / 850 1380 / 1380 570 / 570 Balance 250 / 250 566.67 / 566.67 -416.67 / -416.67 Lab / Micro Data 12/26/22 06:05 12/27/22 06:05 Radiography Diagnostic Testing: Radiology Impression Nephrostomy Tube Change 12/25/22 11:53 IMPRESSION: Successful left percutaneous nephrostomy tube placement. The current sedation protocol was followed. Electronically Signed: Morris Isaac MD at 14:32 EDT , ADDENDUM: 12/27/22 1445 IMPRESSION: undefined
[2022-12-28 08:07] VITALS: O2SAT 95
[2022-12-28] MEDS: HYDROcodone Bitartrate/Apap 5/325 Tablet PO ×3 (09:09→23:58)
[2022-12-28] MEDS: Cefazolin 1 GM/50 ML BAG IV ×2 (09:49→21:16)
[2022-12-28] MEDS: Docusate Sodium 100 MG Capsule 200 MG PO ×2 (09:50→21:15)
[2022-12-28] MEDS: Oxybutynin 5 MG Tablet 10 MG PO (09:51)
--- NOTE | 2022-12-28 10:11 | PCM.PN.BLA ---
Progress Note 72-year-old female with aggressive bladder cancer carcinoma bilateral stents are in place draining a little bit less urine but still draining some urine. She still having severe abdominal pain off-and-on so we will hold off on discharge we are awaiting transfer to the [facility] I put a call in 2 days ago and they accepted her as a patient hopefully over the weekend this will happen. For now we will keep her on low-dose Lovenox to prevent blood clots again to check a BMP today she is clinically stable otherwise okay to get around and shower etc.
[2022-12-28 11:32] LABS: Anion Gap 10 (5-15); BUN 15 mg/dL (7-18); BUN/Creat Ratio 9.6 RATIO (10-20); Calcium,Total 8.6 mg/dL (8.5-10.1); Chloride 106 mmol/L (98-107); Creatinine, Serum 1.56 mg/dL (0.55-1.02); EST Glomerular Filtration Rate 35 mL/min (>60); Est Glom Filt Rate - Afr Amer 42 mL/min (>60); Estimated Creatinine Clearance 23.07 ml/min; Glucose 117 mg/dL (74-106); Potassium 3.4 mmol/L (3.5-5.1); Sodium Level 138 mmol/L (136-145)
[2022-12-28 14:00] VITALS: BP 114/69; PULSE 98; RESP 16; TEMP 37.2; O2SAT 97
--- NOTE | 2022-12-28 20:12 | NURSING ---
Report called to CARINA Martinez at [facility]. Patient is being sent to G90 bed 29 at [facility]. Phone number for that unit is [phone]. This RN told CARINA Martinez that I will call when patient leaves our facility.
[2022-12-28 21:11] VITALS: BP 125/69; PULSE 101; RESP 18; TEMP 37.7; O2SAT 94
[2022-12-28] MEDS: Acetaminophen 325 MG Tablet PO (21:15)
[2022-12-28] MEDS: Ondansetron 4 MG/2 ML Vial IV (21:22)
[2022-12-28] MEDS: 0.9% Saline Lock 10 ML Syringe IV ×2 (22:13→23:37)
[2022-12-28 23:38] VITALS: BP 130/72; PULSE 93; RESP 18; TEMP 36.9; O2SAT 98
--- NOTE | 2022-12-28 23:51 | NURSING ---
This RN called G90 at [facility] ([phone]) to let them know that patient is on her way.
== END 2022-12-28 23:45 | disposition short-term general hospital (02) | DRG 688 ==
PROVIDERS: Radiology Diagnostic Radiology; Admitting Provider Urology; PCP Family Medicine; Visit Provider Urology
DX: C67.0 Malignant neoplasm of trigone of bladder (principal); C54.1 Malignant neoplasm of endometrium; E78.5 Hyperlipidemia, unspecified; Z79.83 Long term (current) use of bisphosphonates; Z80.3 Family history of malignant neoplasm of breast; Z80.0 Family history of malignant neoplasm of digestive organs; N32.89 Other specified disorders of bladder
CPT/HCPCS: 36415; 50432; 80048; 80053; 85027; 85610; 85730; 94668; 99156; 99157; 99252; J7030; A4216; G0463; J2405

== ENCOUNTER 2023-05-07 12:06 | Observation (INO) | payer MEDICARE, SELFPAY ==
[2023-05-07] VITALS (7 sets, daily range): BP systolic 99–121; BP diastolic 65–88; PULSE 95–123; RESP 16–20; TEMP 37.2–39.3; O2SAT 95–99; BMI 26.9; BMI 25.8
--- NOTE | 2023-05-07 12:27 | MRI_ITS ---
STUDY: MRI LUMBAR SPINE WITH AND WITHOUT CONTRAST REASON FOR EXAM: Female, 73 years old. leg weakness -- recent bladder CA, new leg weakness on left bilateral leg weakness, bladder CA DX 02/05, increased temp, difficulty walking, has nephro tube and port TECHNIQUE: Standardized fat and water weighted pulse sequences were obtained in the sagittal and axial planes. IV yes 12ml clariscan was administered for the contrast portion of the examination. COMPARISON: CT of abdomen and pelvis dated December 06, 2022 FINDINGS: T12-L1: Moderate to significant disc space narrowing with a diffuse disc bulge. Small Schmorl''s node. Normal bilateral facet joints. Normal central canal and bilateral lateral recesses. Normal bilateral intervertebral neural foramina. Normal lumbar lordosis. There is no substantial scoliosis. Normal conus medullaris that terminates at the T12-L1 level. No marrow edema or fracture or compression deformity is present. No lytic or blastic or malignant appearing lesions are seen in the bony or soft tissue structures or in the distal spinal cord or nerve roots. There are no abnormal enhancing lesions of the bony or soft tissue structures. L1-2: Normal endplates. Moderate disc space narrowing with diffuse disc desiccation and mild disc space narrowing with slight annular bulging. Normal bilateral facet joints. Normal central canal and bilateral lateral recesses. Normal bilateral intervertebral neural foramina. L2-3: Normal endplates. Diffuse disc desiccation with mild posterior disc space narrowing and slight annular bulging. Normal bilateral facet joints. Normal central canal and bilateral lateral recesses. Normal bilateral intervertebral neural foramina. L3-4: Diffuse disc desiccation with mild posterior disc space narrowing and slight annular bulging. Mild central canal stenosis secondary to moderate facet joint and ligament of flavum hypertrophy. Mild left foraminal stenosis with impingement. Moderate right foraminal stenosis with nerve root compression. L4-5: Normal endplates. Diffuse disc desiccation with mild disc space narrowing and slight annular bulging. Moderate facet joint and ligament of flavum hypertrophy with mild central canal stenosis and bilateral lateral recess stenosis with impingement. Mild fluid distention of the facet joints. Mild bilateral foraminal stenosis. L5-S1: Normal endplates. Diffuse disc desiccation with mild disc space narrowing and slight annular bulging. Anterolisthesis of L5 on S1 of 2 mm with uncovering of the disc. Mild to moderate facet joint hypertrophy. Normal central canal and bilateral lateral recesses. Mild left foraminal stenosis. Normal right neural foramen. Normal visualized sacral ala. Normal visualized paraspinous soft tissue structures. MRI/Spine Lumbar W/WO Contrast IMPRESSION: 1. Multilevel degenerative changes, as described above. 2. Multilevel foraminal stenosis with impingement or nerve root compression 3. Mild central canal stenosis at L3-L4 and L4-L5 4. No marrow edema or fracture or compression deformity is present. No lytic or blastic or malignant appearing lesions are seen in the bony or soft tissue structures or in the distal spinal cord or nerve roots. There are no abnormal enhancing lesions of the bony or soft tissue structures. Electronically Signed: Austin Farley MD at 15:38 EST Reading Location ID and State: [facility] / [place] , Service support ,
--- NOTE | 2023-05-07 12:56 | EX.ED.DYSGE1 ---
HPI History of Present Illness Chief Complaint: Lower Extremity Injury Informant: patient and family Narrative Narrative: Presenting with bilateral lower extremity weakness since yesterday morning left greater than right. Denies back pain. Diagnosed with bladder cancer this past January. Chemotherapy has been started last time was less than 3 weeks ago with next treatment in 5 days. She has ileostomy, also has a right nephrostomy tube has been capped off. She is followed by [facility] urology. Presentation had a temp of 100, denies feeling fevers or chills or myalgias. Denies cough. Denies any vomiting. States had mild diarrhea after her chemo treatment however none since. Denies abdominal pain. Remote history of endometrial cancer that was aggressive 2 years ago with hysterectomy. Reports with the weakness there is pain on the lateral aspect of the left lower leg. She is having difficulty ambulating due to weakness. Prior similar symptoms: No PFSH PFSH Medical History Bladder mass GERD (gastroesophageal reflux disease) History of cardiac murmur Hoarseness Hyperlipidemia Kidney stone Non-smoker Osteopenia Home Medications alendronate 70 mg tablet (Fosamax) 70 mg PO DÍAZ osteoporosis 03/07/21 [History Last Taken 05/04/23] potassium chloride 10 mEq tablet,extended release 10 meq PO DAILY supplement 05/07/23 [History Last Taken 05/07/23] Allergy/AdvReac Type Severity Reaction Status Date / Time No Known Allergies Allergy Verified 05/07/23 12:11 Family History Father Cancer, Onset Age: 57 Lung Mother Heart disease Osteopetrosis Sister Colon cancer Sister Breast cancer Sister Breast cancer Brother Cancer lung Surgical History H/O tubal ligation History of colonoscopy History of cystoscopy History of hysterectomy S/P dilation and curettage (~04/17/21) Social History household members: significant other number of children: 3 current occupational status: retired Smoking Status: Never smoker alcohol intake: never substance use type: does not use caffeine: Yes what type of physical activity do you participate in: walking seatbelt use: always do you feel safe at home: Yes additional social history: retired- [employer] ROS ROS ED Constitutional Constitutional ED: Denies chills, fever(s) or sweats Eyes Eyes: Denies change in vision ENT ENT ED: Denies dysphagia or sore throat Cardiovascular Cardiovascular: Denies chest pain, leg edema, palpitations or racing heartbeat Respiratory/Chest Respiratory/Chest: Denies cough, dyspnea or dyspnea on exertion Gastrointestinal Gastrointestinal: Denies abdominal pain, diarrhea, nausea or vomiting Genitourinary Genitourinary ED: Denies dysuria, hematuria or urinary frequency Musculoskeletal Musculoskeletal: Reports extremity pain; Denies back pain or neck pain Integumentary Denies rash or wounds Neurologic Neurologic: Reports paresthesias and weakness; Denies headache(s) EXAM Physical Exam Const Vital Signs: 05/07/23 12:07 05/07/23 15:32 Temperature 100 F H Temperature Source Temporal Pulse Rate 123 H Respiratory Rate 20 H 16 Blood Pressure 121/73 H 107/88 H Blood Pressure Mean 89 94 Pulse Ox 98 99 Oxygen Delivery Method Room Air Room Air Positive well nourished and well developed General Appearance ED: well developed and NAD HEENT Reports moist mucous membranes normocephalic and atraumatic Eyes PERRL, EOMs intact bilaterally and conjunctivae normal General Eye ED: Yes normal appearance of both eyes Neck no lymphadenopathy and supple General: Negative for tenderness Chest Wall Chest: Negative for tenderness Resp normal respiratory effort and normal air movement Effort and Inspection: symmetric chest movement; Negative for respiratory distress Cardio regular rhythm and no murmurs Rate: tachycardic Peripheral Pulses: pulses 2+ throughout GI normal to inspection, nondistended, normoactive bowel sounds and non-tender Palpation: Negative for guarding or rebound tenderness present Back/Spine no CVA tenderness and no thoracic nor lumbar tenderness Extremity General Extremety ED: Negative for edema or tenderness General Extremity: Negative for edema Neuro oriented x3 Neuro Narrative: Weakness to the left hip flexors compared to the right. Plantar and dorsiflexion seem symmetric bilaterally. Pulses intact distally. Sensorium / Orientation: awake and alert Skin no rashes or lesions noted and no wounds MDM MDM MDM Narrative Medical decision making narrative: Interventions / MDM: Differential diagnosis: Neutropenia, electrolyte abnormalities, bladder cancer, spinal mass Diagnosis considered but do not suspect: DVT however ultrasound is negative. My EKG interpretation: Sinus rate of 105, no ST or T wave changes, incomplete right bundle branch block. Imaging independently reviewed and interpreted by myself: DVT studies bilateral lower extremities: Discussion with plastic technician, negative bilaterally. MRI lumbar spine with and without contrast: Pending External documents reviewed: N/A Test considered but not ordered:N/A ED course: Patient had new leg weakness left greater than right with current bladder cancer. MRI studies will be ordered the lumbar spine with and without contrast to rule out any spinal mass. She had a temp of 100 and tachycardic, asymptomatic from this however recent chemo, neutropenic labs were ordered for further evaluation. 1340: White count 2.9 hemoglobin 7.7 platelets 187 lactic acid 1. Creatinine 0.74. Potassium 3.0. Sodium 139. Patient denies any rectal bleeding. Last hemoglobin was 9.4. Oral potassium ordered for replacement. 1500: DVT studies are negative. MRI results pending. 1605: MRI result negative for any spinal mass. Reported impingement L3-L4 region bilaterally of the spinal canal. L4 nerve does have control of hip flexors. She denies any back pain issues. Attempted to ambulate however needed assistance due to weakness primarily left lower extremity. Urine results did return with signs of infection. Cultures pending. Rocephin IV antibiotics. Will discuss with hospital service for patient. 1635: Spoke with Dr. Wilcox, discussed patient's presentation's history and findings. Patient be admitted to the medical floor for further management. Re-evaluation: stable Disposition discussed with patient/family/significant other: Patient and family Case discussed with consulting clinician: N/A This note was generated with [employer] dictation software. It may contain incorrect words, spelling, and punctuation that were not noted in checking the note before signing. Lab Data Attestation: I reviewed the patient's lab results. Labs: Laboratory Results - last 24 hr 05/07/23 05/07/23 12:55 15:30 WBC 2.9 L RBC 2.69 L Hgb 7.7 L Hct 24.6 L MCV 91.4 MCH 28.6 MCHC 31.3 L RDW Std Deviation 50.8 H RDW Coeff of [place] 15.5 H Plt Count 187 MPV 8.9 Immature Gran % (Auto) 0.300 Neut % (Auto) 37.3 L Lymph % (Auto) 33.0 [place] % (Auto) 28.8 H Eos % (Auto) 0.3 Baso % (Auto) 0.3 Absolute Neuts (auto) 1.1 L Absolute Lymphs (auto) 0.95 Nucleated RBC % 0 Sodium 139 Potassium 3.0 L Chloride 108 H Carbon Dioxide 25.0 Anion Gap 6 BUN 15 Creatinine 0.74 Estim Creat Clear Calc 35.45 Est GFR (MDRD) Af Amer 99 Est GFR (MDRD) Non-Af 82 BUN/Creatinine Ratio 20.4 H Glucose 129 H Lactic Acid 1.0 Calcium 8.4 L Total Bilirubin 0.40 AST 16 ALT 16 Alkaline Phosphatase 81 Total Protein 7.3 Albumin 2.7 L Globulin 4.6 H Albumin/Globulin Ratio 0.6 L Urine Color Yellow Urine Clarity Cloudy Urine pH 7.0 Ur Specific [place] 1.005 Urine Protein 30 H Urine Glucose (UA) Normal Urine Ketones 15 H Urine Occult Blood 50 H Urine Nitrite Positive H Urine Bilirubin Negative Urine Urobilinogen Normal Ur Leukocyte Esterase 500 H Urine RBC 0-5 SEEN Urine WBC >100 SEEN Ur Squamous Epith Cells 0 SEEN Urine Bacteria 3+ Urine Mucus 0 SEEN Radiography Diagnostic Testing: Clinical Impression(s) from Imaging Studies Lumbar Spine MRI 05/07/23 12:27 IMPRESSION: 1. Multilevel degenerative changes, as described above. 2. Multilevel foraminal stenosis with impingement or nerve root compression 3. Mild central canal stenosis at L3-L4 and L4-L5 4. No marrow edema or fracture or compression deformity is present. No lytic or blastic or malignant appearing lesions are seen in the bony or soft tissue structures or in the distal spinal cord or nerve roots. There are no abnormal enhancing lesions of the bony or soft tissue structures. Electronically Signed: Austin Farley MD at 15:38 EST Reading Location ID and State: [address] [place] [address] , Service support , Discharge Plan Triage Chief Complaint: Lower Extremity Injury ED Provider: Malcolm Jacobsen Dx/Rx/DC Orders Clinical Impression: Bladder cancer, Anemia, Leg weakness, bilateral, Hypokalemia, Complicated UTI (urinary tract infection), Chemotherapy induced neutropenia Prescriptions: No Action alendronate [Fosamax] 70 mg tablet 70 mg PO DÍAZ potassium chloride 10 mEq tablet extended release 10 meq PO DAILY Primary Care Provider: Daysi Oviedo Referrals: Daysi Oviedo DO [Primary Care Provider] -
[2023-05-07] MEDS: 0.9% Normal Saline (1000mL) 1,000 ML 999 ML IV (13:02)
[2023-05-07 13:04] LABS: Absolute Lymphocyte Count 0.95 X10^3/uL (0.83-4.51); Absolute Neutrophil Count 1.1 X10^3/uL (2.0-7.7); Basophil# 0.01 X10^3/uL; Basophil% 0.3 % (0-1); Eosinophil# 0.01 X10^3/uL; Eosinophils% 0.3 % (0-5); Hematocrit 24.6 % (37-47); Hemoglobin 7.7 g/dL (12.0-15.0); Lymphocyte # 0.95 X10^3/ul (0.83-4.51); Mean Corp Hgb Conc 31.3 g/dL (32-36); Mean Corpuscular Hgb 28.6 pg (27.0-32.0); Mean Corpuscular Volume 91.4 fL (81-99); Mean Platelet Vol. 8.9 fl (6.2-12.0); Monocyte# 0.83 X10^3/uL; Monocyte% 28.8 % (0-10); NRBC Flagged by Analyzer 0 % (0-5); Neutrophil # 1.07 X10^3/uL (2.7-7.7); Neutrophil % 37.3 % (47-70); Platelet Count 187 K/mm3 (150-450); RBC Distribution Width CV 15.5 % (11.6-14.6); RBC Distribution Width SD 50.8 fl (35.1-43.9); Red Blood Count 2.69 M/mm3 (4.2-5.4); White Blood Count 2.9 K/mm3 (4.4-11.0)
[2023-05-07 13:22] LABS: ALB/GLOB Ratio 0.6 RATIO (0.9-2.4); AST(SGOT) 16 U/L (15-37); Alanine Aminotransfer ALT/SGPT 16 U/L (13-56); Albumin, Serum 2.7 g/dL (3.2-5.0); Alkaline Phosphatase 81 U/L (45-117); Anion Gap 6 (5-15); BUN 15 mg/dL (7-18); BUN/Creat Ratio 20.4 RATIO (10-20); Calcium,Total 8.4 mg/dL (8.5-10.1); Chloride 108 mmol/L (98-107); Creatinine, Serum 0.74 mg/dL (0.55-1.02); EST Glomerular Filtration Rate 82 mL/min (>60); Est Glom Filt Rate - Afr Amer 99 mL/min (>60); Estimated Creatinine Clearance 35.45 ml/min; Globulin 4.6 g/dL (2.2-4.2); Glucose 129 mg/dL (74-106); Protein, Total 7.3 g/dL (6.4-8.2); Sodium Level 139 mmol/L (136-145)
--- NOTE | 2023-05-07 14:43 | VDLE_ITS ---
Reason For Study: BLE Pain RIGHT LEFT GSV is normal. GSV is normal. CFV is compressible, spontaneous, competent CFV is compressible, spontaneous, competent, and demonstrates pulsatile venous flow. and demonstrates pulsatile venous flow. FV is compressible, spontaneous, competent FV is compressible, spontaneous, competent and demonstrates pulsatile venous flow. and demonstrates pulsatile venous flow. POP V is compressible, spontaneous, competent POP V is compressible, spontaneous, competent and demonstrates pulsatile venous flow. and demonstrates pulsatile venous flow. T/P Trunk is compressible. T/P Trunk is compressible. PTV is compressible. PTV is compressible. RT PerV is compressible. LT PerV is compressible. Procedure This is a venous duplex using B-mode, color flow and spectral Doppler. Exam performed portable in ED. The exam was diagnostic. A preliminary report was called and/or faxed to Dr. Jacobsen. VL/Venous Duplex US - Michael Extrem Interpretation Summary Deep veins of the bilateral lower extremities are patent and compressible segme ntally. There is no evidence of bilateral lower extremity deep vein thrombosis. The bilateral great saphenous veins appear patent and compressible segmentally. Ordering Physician: Malcolm Jacobsen Referring Physician: Daysi Oviedo Performed By: Ed Phillips, RVT
[2023-05-07] MEDS: Potassium Chloride Oral Tablet 20 MEQ 40 MEQ PO (15:21)
[2023-05-07 15:38] LABS: Mucous, Urine 0 SEEN /hpf (<or=2+); Squamous Epithelial Cells - UA 0 SEEN /hpf (5-10)
[2023-05-07 15:47] LABS: Color, Urine Yellow (Yellow); Glucose, Dipstick Normal (Normal); Ketone-Dipstick 15 mg/dl (Negative); Leukocyte Esterase-Dipstick 500 /ul (Negative); Nitrite-Dipstick Positive (Negative); Occult Blood-Urine 50 /ul (Negative); Protein-Dipstick 30 mg/dl (Negative); Specific Gravity, Urine 1.005 (1.002-1.030); Urine Bilirubin Dipstick Negative (Negative); Urine Clarity Cloudy (Clear); Urine Urobilinogen Normal (Normal)
[2023-05-07 16:10] LABS: Red Blood Cells-Urine 0-5 SEEN /hpf (0-5); White Blood Cells >100 SEEN /hpf (0-5)
[2023-05-07 16:11] LABS: Bacteria 3+ /hpf (None Seen)
[2023-05-07] MEDS: Ceftriaxone 1 GM/50 ML BAG IV (16:24)
--- NOTE | 2023-05-07 16:31 | NURSING ---
DR FADY OWEN
--- NOTE | 2023-05-07 16:41 | NURSING ---
MED SURG SHRESTHA LEG WEAKNESS, UTI
--- NOTE | 2023-05-07 17:24 | PCM.HP.STD ---
[facility] - General General Date of Admission: 05/07/23 Date of Service: 05/07/23 Chief Complaint: Lower extremity weakness [facility] Narrative CHANDU EDWARDS, is a 73-year-old female with history of kidney stones, hyperlipidemia, GERD, ileostomy and right nephrostomy tube, and bladder cancer diagnosed in January presented to [facility] 05/07/2023 with bilateral lower extremity weakness for 1 day left leg greater than right with no reports of back pain. Chemotherapy has been initiated with the last time less than 3 weeks ago with next treatment of 5 days. Temp in ED 100 with a pulse rate of 123. Patient with a white blood cell count of 2.9 and hemoglobin 7.7, potassium 3 and work-up otherwise unremarkable. Given new leg weakness with concurrent bladder cancer MRI was ordered in ED to rule out spinal mass. MRI in ED had no infection and showed some degenerative disease and stenosis but nothing that would account for her bilateral lower extremity weakness. Patient's UA was suggestive of UTI and she was given Rocephin and attempted to ambulate her however she lives alone and still weak enough she cannot ambulate independently, hospitalist contacted for admission. Evaluated patient at bedside who reports that her leg aching and weakness has actually been waxing and waning since her first chemotherapy over the past 4 to 5 days she has progressively been generally weak with both lower extremities weaker as well as achy and knee pain. She did not eat very well yesterday and feels she overexerted herself at home and did not sleep very well due to her knee pain when she woke up today she had difficulty with ambulating. Does feel left is worse than right but some of the movement of her left lower extremity is due to aching in her knees. She has urostomy so unable to tell if she has any burning on urination, has had a lot of urine production, no abdominal pain or diarrhea. Denies other complaints today. Patient has no back pain. [facility] Medical History Bladder mass GERD (gastroesophageal reflux disease) History of cardiac murmur Hoarseness Hyperlipidemia Kidney stone Non-smoker Osteopenia Home Medications alendronate 70 mg tablet (Fosamax) 70 mg PO DÍAZ osteoporosis 03/07/21 [History Last Taken 05/04/23] potassium chloride 10 mEq tablet,extended release 10 meq PO DAILY supplement 05/07/23 [History Last Taken 05/07/23] Allergy/AdvReac Type Severity Reaction Status Date / Time No Known Allergies Allergy Verified 05/07/23 12:11 Family History Father Cancer, Onset Age: 57 Lung Mother Heart disease Osteopetrosis Sister Colon cancer Sister Breast cancer Sister Breast cancer Brother Cancer lung Surgical History H/O tubal ligation History of colonoscopy History of cystoscopy History of hysterectomy S/P dilation and curettage (~04/17/21) Social History household members: significant other number of children: 3 current occupational status: retired Smoking Status: Never smoker alcohol intake: never substance use type: does not use caffeine: Yes what type of physical activity do you participate in: walking seatbelt use: always do you feel safe at home: Yes additional social history: retired- [employer] ROS ROS Narrative General: Denies fever/chills HENT: Denies headache, denies stuffy nose, denies sore throat EYES: Denies changes in vision Resp: Denies cough, denies shortness of breath Cardiac: Denies chest pain GI: Denies abdominal pain, denies changes in bowel, denies nausea/vomiting : Denies changes in urination Extremity: Denies swelling MSK: Aching in her knees and generalized weakness more so on lower legs and left more than right Neuro: Denies any numbness/tingling Heme: Denies any bleeding or bruising Skin: Denies rashes Psychiatric: No complaints voiced Vital Signs Vital Signs Vital Signs: 05/07/23 12:07 05/07/23 15:32 05/07/23 17:05 Temperature 100 F H Temperature Source Temporal Pulse Rate 123 H 100 Respiratory Rate 20 H 16 16 Blood Pressure 121/73 H 107/88 H Blood Pressure Mean 89 94 Pulse Ox 98 99 95 Oxygen Delivery Method Room Air Room Air 05/07/23 17:05 05/07/23 17:07 Temperature 99 F Temperature Source Temporal Pulse Rate 102 H 102 H Respiratory Rate 16 16 Blood Pressure 121/65 H 121/65 H Blood Pressure Mean 83 83 Pulse Ox 95 95 Oxygen Delivery Method Room Air Weight Weight: 62.4 kg Body Mass Index (BMI) 26.9 Physical Exam Narrative General: Alert, oriented, no apparent distress HEENT: Atraumatic, normocephalic Eyes: Anicteric, normal conjunctiva, extraocular movements grossly intact Neck: Supple Respiratory: Clear to auscultation bilaterally, normal respiratory effort Cardiovascular: Regular rate and rhythm GI: Soft, nontender, nondistended Extremities: No edema Musculoskeletal: Had difficulty with hip flexors bilaterally left greater than right but left was somewhat limited due to patient's knees aching. Patient able to plantarflex symmetrically and strong without difficulty Neuro: No overt focal neurological deficits Skin: No rashes appreciated Psych: Cooperative Results Lab / Micro Data 05/07/23 12:55 05/07/23 12:55 Labs: Laboratory Results - last 24 hr 05/07/23 12:55: WBC 2.9 L, RBC 2.69 L, Hgb 7.7 L, Hct 24.6 L, MCV 91.4, MCH 28.6, MCHC 31.3 L, RDW Std Deviation 50.8 H, RDW Coeff of [place] 15.5 H, Plt Count 187, MPV 8.9, Immature Gran % (Auto) 0.300, Neut % (Auto) 37.3 L, Lymph % (Auto) 33.0, [place] % (Auto) 28.8 H, Eos % (Auto) 0.3, Baso % (Auto) 0.3, Absolute Neuts (auto) 1.1 L, Absolute Lymphs (auto) 0.95, Nucleated RBC % 0, Sodium 139, Potassium 3.0 L, Chloride 108 H, Carbon Dioxide 25.0, Anion Gap 6, BUN 15, Creatinine 0.74, Estim Creat Clear Calc 35.45, Est GFR (MDRD) Af Amer 99, Est GFR (MDRD) Non-Af 82, BUN/Creatinine Ratio 20.4 H, Glucose 129 H, Lactic Acid 1.0, Calcium 8.4 L, Total Bilirubin 0.40, AST 16, ALT 16, Alkaline Phosphatase 81, Total Protein 7.3, Albumin 2.7 L, Globulin 4.6 H, Albumin/Globulin Ratio 0.6 L 05/07/23 15:30: Urine Color Yellow, Urine Clarity Cloudy, Urine pH 7.0, Ur Specific [place] 1.005, Urine Protein 30 H, Urine Glucose (UA) Normal, Urine Ketones 15 H, Urine Occult Blood 50 H, Urine Nitrite Positive H, Urine Bilirubin Negative, Urine Urobilinogen Normal, Ur Leukocyte Esterase 500 H, Urine RBC 0-5 SEEN, Urine WBC >100 SEEN, Ur Squamous Epith Cells 0 SEEN, Urine Bacteria 3+, Urine Mucus 0 SEEN Imagaing Radiology Impression Lumbar Spine MRI 05/07/23 12:27 IMPRESSION: 1. Multilevel degenerative changes, as described above. 2. Multilevel foraminal stenosis with impingement or nerve root compression 3. Mild central canal stenosis at L3-L4 and L4-L5 4. No marrow edema or fracture or compression deformity is present. No lytic or blastic or malignant appearing lesions are seen in the bony or soft tissue structures or in the distal spinal cord or nerve roots. There are no abnormal enhancing lesions of the bony or soft tissue structures. Electronically Signed: Austin Farley MD at 15:38 EST Reading Location ID and State: [facility] / [place] , Service support , Assessment & Plan Assessment/Plan (1) Leg weakness, bilateral: (2) Complicated UTI (urinary tract infection): (3) Bladder cancer: QUALIFIERS: Bladder location: trigone Qualified Code(s): C67.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 PLAN: Plan #BLE weakness -Patient reports this has been progressive and waxes and wanes with chemotherapy but after overdoing activities yesterday and not sleeping well given her knee aching this morning she does feel so weak that is difficult for her to ambulate -MRI obtained in ED with multilevel degenerative changes and some varying levels of stenosis and impingement but findings do not necessarily seem to correlate directly with her present complaint -Suspect her weakness has been exacerbated by UTI and hypokalemia -We will treat with Rocephin await urine culture -Hypokalemia replaced -We will check mag, Phos, TSH -PT/OT #UA with concern for UTI -Patient has urostomy so difficult to elicit symptomatology however UA suggestive of UTI -Urine culture -Rocephin #Bladder cancer -Diagnosed in January -Follows with [facility] urology -Started on chemo 3 weeks ago with neck scheduled in 5 days #Hypokalemia -Replaced in ED #GERD -Continue PPI #Ileostomy and nephrostomy tube -Supportive care #Lymphopenia and anemia -Likely secondary to cancer and chemotherapy -Daily CBC #DVT ppx: SCDs Radha Wilcox MD Time spent in the patient's overall evaluation,decision-making process, review of diagnostic data, adjustment of management, discussion with other providers, nursing nursing and ancillary staff involved in patient's care documentation, 55 minutes Charges/Coding Visit Charges Inpatient E&M: 39412 Init Hosp L2
[2023-05-07] MEDS: Acetaminophen 500 MG Tablet 1000 MG PO (21:30)
[2023-05-08] MEDS: oxyCODONE 5 MG Tablet PO ×2 (00:09→22:17)
[2023-05-08] MEDS: MELATONIN 3 MG TABLET PO ×2 (00:10→21:08)
[2023-05-08] MEDS: Acetaminophen 500 MG Tablet 1000 MG PO ×3 (05:04→21:08)
[2023-05-08 05:22] VITALS: BP 104/68; PULSE 101; RESP 16; TEMP 36.9; O2SAT 98
[2023-05-08 06:27] LABS: Absolute Lymphocyte Count 1.36 X10^3/uL (0.83-4.51); Absolute Neutrophil Count 1.4 X10^3/uL (2.0-7.7); Basophil# 0.03 X10^3/uL; Basophil% 0.8 % (0-1); Eosinophil# 0.04 X10^3/uL; Hematocrit 31.4 % (37-47); Lymphocyte # 1.36 X10^3/ul (0.83-4.51); Lymphocyte % 34.6 % (19-41); Mean Corp Hgb Conc 31.8 g/dL (32-36); Mean Corpuscular Hgb 29.2 pg (27.0-32.0); Mean Corpuscular Volume 91.5 fL (81-99); Mean Platelet Vol. 9.1 fl (6.2-12.0); Monocyte# 1.07 X10^3/uL; Monocyte% 27.2 % (0-10); NRBC Flagged by Analyzer 0 % (0-5); Neutrophil % 35.6 % (47-70); Platelet Count 234 K/mm3 (150-450); RBC Distribution Width CV 15.9 % (11.6-14.6); Red Blood Count 3.43 M/mm3 (4.2-5.4); White Blood Count 3.9 K/mm3 (4.4-11.0)
[2023-05-08 07:08] LABS: ALB/GLOB Ratio 0.5 RATIO (0.9-2.4); AST(SGOT) 17 U/L (15-37); Alanine Aminotransfer ALT/SGPT 14 U/L (13-56); Albumin, Serum 2.5 g/dL (3.2-5.0); Alkaline Phosphatase 82 U/L (45-117); Anion Gap 5 (5-15); BUN 11 mg/dL (7-18); BUN/Creat Ratio 14.6 RATIO (10-20); Calcium,Total 8.4 mg/dL (8.5-10.1); Chloride 109 mmol/L (98-107); Creatinine, Serum 0.75 mg/dL (0.55-1.02); EST Glomerular Filtration Rate 80 mL/min (>60); Est Glom Filt Rate - Afr Amer 97 mL/min (>60); Estimated Creatinine Clearance 35.45 ml/min; Globulin 4.7 g/dL (2.2-4.2); Glucose 110 mg/dL (74-106); Phosphorus 2.6 mg/dL (2.5-4.9); Potassium 3.7 mmol/L (3.5-5.1); Protein, Total 7.2 g/dL (6.4-8.2); Sodium Level 140 mmol/L (136-145); Thyroid Stim Hormone (TSH) 4.72 uIU/mL (0.358-3.74)
--- NOTE | 2023-05-08 07:36 | PN.HOSP_ITS ---
Reason for Visit Reason for Visit: Diagnoses Malignant neoplasm of trigone of bladder (05/07/23) Urinary tract infection, site not specified (05/07/23) Other symptoms and signs involving the musculoskeletal system (05/07/23) Subjective Subjective Patient is a 73-year-old lady with history of bladder CA currently on chemo admitted with progressive generalized weakness O2 with ambulation as well as significant pain involving both knees left greater than right Objective Data Objective Data Vital Signs: Vital Signs Temp Pulse Resp BP Pulse Ox O2 Del Method 98.4 F 101 H 16 104/68 98 Room Air 05/08/23 05:22 05/08/23 05:22 05/08/23 05:22 05/08/23 05:22 05/08/23 05:22 05/08/23 05:22 Oxygen Delivery Method Room Air Weight: 60 kg Body Mass Index (BMI) 25.8 Intake & Output: Intake and Output for Last 24 Hours 05/06/23 05/07/23 05/08/23 23:59 23:59 23:59 Intake Total 1250 / 1250 600 / 600 Output Total 450 / 450 375 / 375 Balance 800 / 800 225 / 225 Lab / Micro Data 05/08/23 05:25 05/08/23 05:25 Labs: Laboratory Results - last 24 hr 05/07/23 12:55: WBC 2.9 L, RBC 2.69 L, Hgb 7.7 L, Hct 24.6 L, MCV 91.4, MCH 28.6, MCHC 31.3 L, RDW Std Deviation 50.8 H, RDW Coeff of Harrison 15.5 H, Plt Count 187, MPV 8.9, Immature Gran % (Auto) 0.300, Neut % (Auto) 37.3 L, Lymph % (Auto) 33.0, Douglas % (Auto) 28.8 H, Eos % (Auto) 0.3, Baso % (Auto) 0.3, Absolute Neuts (auto) 1.1 L, Absolute Lymphs (auto) 0.95, Nucleated RBC % 0, Sodium 139, Potassium 3.0 L, Chloride 108 H, Carbon Dioxide 25.0, Anion Gap 6, BUN 15, Creatinine 0.74, Estim Creat Clear Calc 35.45, Est GFR (MDRD) Af Amer 99, Est GFR (MDRD) Non-Af 82, BUN/Creatinine Ratio 20.4 H, Glucose 129 H, Lactic Acid 1.0, Calcium 8.4 L, Total Bilirubin 0.40, AST 16, ALT 16, Alkaline Phosphatase 81, Total Protein 7.3, Albumin 2.7 L, Globulin 4.6 H, Albumin/Globulin Ratio 0.6 L 05/07/23 15:30: Urine Color Yellow, Urine Clarity Cloudy, Urine pH 7.0, Ur Specific [place] 1.005, Urine Protein 30 H, Urine Glucose (UA) Normal, Urine Ketones 15 H, Urine Occult Blood 50 H, Urine Nitrite Positive H, Urine Bilirubin Negative, Urine Urobilinogen Normal, Ur Leukocyte Esterase 500 H, Urine RBC 0-5 SEEN, Urine WBC >100 SEEN, Ur Squamous Epith Cells 0 SEEN, Urine Bacteria 3+, Urine Mucus 0 SEEN 05/08/23 05:25: WBC 3.9 L, RBC 3.43 L, Hgb 10.0 L, Hct 31.4 L, MCV 91.5, MCH 29.2, MCHC 31.8 L, RDW Std Deviation 52.0 H, RDW Coeff of Harrison 15.9 H, Plt Count 234, MPV 9.1, Immature Gran % (Auto) 0.800, Neut % (Auto) 35.6 L, Lymph % (Auto) 34.6, Douglas % (Auto) 27.2 H, Eos % (Auto) 1.0, Baso % (Auto) 0.8, Absolute Neuts (auto) 1.4 L, Absolute Lymphs (auto) 1.36, Nucleated RBC % 0, Sodium 140, Potassium 3.7, Chloride 109 H, Carbon Dioxide 26.0, Anion Gap 5, BUN 11, Creatinine 0.75, Estim Creat Clear Calc 35.45, Est GFR (MDRD) Af Amer 97, Est GFR (MDRD) Non-Af 80, BUN/Creatinine Ratio 14.6, Glucose 110 H, Calcium 8.4 L, Phosphorus 2.6, Magnesium 2.0, Total Bilirubin 0.30, AST 17, ALT 14, Alkaline Phosphatase 82, Total Protein 7.2, Albumin 2.5 L, Globulin 4.7 H, Albumin/Globulin Ratio 0.5 L, TSH 4.72 H Radiography Diagnostic Testing: Radiology Impression Lumbar Spine MRI 05/07/23 12:27 IMPRESSION: 1. Multilevel degenerative changes, as described above. 2. Multilevel foraminal stenosis with impingement or nerve root compression 3. Mild central canal stenosis at L3-L4 and L4-L5 4. No marrow edema or fracture or compression deformity is present. No lytic or blastic or malignant appearing lesions are seen in the bony or soft tissue structures or in the distal spinal cord or nerve roots. There are no abnormal enhancing lesions of the bony or soft tissue structures. Electronically Signed: Austin Farley MD at 15:38 EST Reading Location ID and State: [facility] / [place] , Service support , Venous Doppler Study 05/07/23 14:43 Interpretation Summary Deep veins of the bilateral lower extremities are patent and compressible segmentally. There is no evidence of bilateral lower extremity deep vein thrombosis. The bilateral great saphenous veins appear patent and compressible segmentally. Ordering Physician: Malcolm Jacobsen Referring Physician: Daysi Oviedo Performed By: Ed Phillips RVT Physical Exam Narrative GENERAL: cooperative HEENT: Atraumatic; normocephalic EYES; Anicteric, Normal Conjunctiva NECK; supple, normal thyroid, RESPIRATORY: Diminished to auscultation CARDIOVASCULAR: Regular S1 S2, GI: soft, normoactive bowel sounds, : No Renal angle tenderness; EXTREMITIES: No edema, no clubbing, MUSCULOSKELETAL: Swelling involving both knees left greater than right NEURO: Awake; no lateralizing signs. SKIN: No Rash PSYCH; Flat affect Assessment & Plan Assessment/Plan (1) Leg weakness, bilateral: (2) Complicated UTI (urinary tract infection): (3) Bladder cancer: QUALIFIERS: Bladder location: trigone Qualified Code(s): C67.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 PLAN: Plan Patient is a 73-year-old lady with history of bladder CA currently on chemo admitted with progressive generalized weakness O2 with ambulation as well as significant pain involving both knees left greater than right 1. Bilateral joint pain and swelling ? Thought to be secondary to paclitaxel induced arthralgias. Admitted to regular nursing floor for symptom management. Case discussed with orthopedic surgery recommend Dr. Monteiro recommended initiation of steroid. Patient was offered joint aspiration hesitant to proceed at this point. MRI obtained in ED with multilevel degenerative changes and some varying levels of stenosis and impingement. Also requested for PT OT eval and treatment 2. Acute tract infection ? Urinalysis obtained from from her urostomy bag. Culture sent started on ceftriaxone pending culture result 3. Bladder CA ? Diagnosed in January 2023 started chemo 3 weeks prior to her admission patient is followed by Dr. Hua 4. Anemia and lymphopenia - Secondary to chronic disorder/chemo induced anemia monitoring CBC with differential and transfuse if patient becomes symptomatic or hemoglobin falls below 7 5. Hypokalemia ? Corrected per protocol 6. GERD ? On PPI 7. Ileostomy and nephrostomy tube -Supportive care 8. DVT prophylaxis ? SC Lovenox Time spent in the patient's overall evaluation,decision-making process, review of diagnostic data, adjustment of management, discussion with other providers, nursing nursing and ancillary staff involved in patient's care documentation, 50 Minutes Charges/Coding Visit Charges Inpatient E&M: 14866 [facility] L3
[2023-05-08] MEDS: Potassium Chloride Oral Tablet 10 MEQ PO (08:14)
[2023-05-08 08:24] VITALS: PULSE 100
[2023-05-08 08:27] VITALS: BP 104/62; PULSE 100; RESP 18; TEMP 37; O2SAT 100
--- NOTE | 2023-05-08 08:46 | RAD_ITS ---
STUDY: X-RAY - LEFT KNEE REASON FOR EXAM: Female, 73 years old. Pain and swelling TECHNIQUE: 3 view(s) of the knee. COMPARISON: None. FINDINGS: Normal visualized distal femur. Normal visualized proximal tibia and fibula. Normal proximal tibiofibular articulation. There is mild degenerative arthrosis of the medial femorotibial compartment. Normal lateral femorotibial compartment. There is moderate degenerative arthrosis of the patellofemoral articulation. There is a moderate volume joint effusion. The soft tissue structures are unremarkable. RAD/Knee 3 Views IMPRESSION: Degenerative arthrosis with suprapatellar effusion. No demonstrated fracture Electronically Signed: Benoit Stark MD at 9:41 EST ,
--- NOTE | 2023-05-08 09:45 | CON.PCM.OR_ITS ---
HPI Consult Data Date of Consult: 05/08/23 HPI Narrative Reason for Consultation: Bilateral knee pain HPI Narrative: CHANDU EDWARDS, is a 73 F who is currently under chemo therapy for bladder cancer. Patient had previous history of bladder cancer resection which was appropriate. She does note that her knees have hurt progressively after each round of chemotherapy. Her most recent round was 2 weeks ago and was her third round of chemotherapy. She notes that since that time she has had progressive knee pain. Starting on Friday she had difficulty ambulating and bearing weight in relation to the pain. She feels the pain feels expanded and tight and is getting more difficult to move. She notes increased swelling over this timeframe. She does report that primarily she presented for left knee pain however the right knee pain continues to worsen as well. Previous left knee x-rays have been obtained. Pain is rated at an 8 out of 10 worse with weightbearing better with immobilization and pain medications. She also reports increased pain with deep flexion. She denies a history of gout. COUNTS INCLUDE 234 BEDS AT THE [facility] Medical History Anxiety Bladder mass GERD (gastroesophageal reflux disease) History of cardiac murmur Hoarseness Hyperlipidemia Irregular heart beat Kidney stone Non-smoker Osteopenia Rheumatoid arthritis Home Medications alendronate 70 mg tablet (Fosamax) 70 mg PO DÍAZ osteoporosis 03/07/21 [History Last Taken 05/04/23] potassium chloride 10 mEq tablet,extended release 10 meq PO DAILY supplement 05/07/23 [History Last Taken 05/07/23] Allergy/AdvReac Type Severity Reaction Status Date / Time No Known Allergies Allergy Verified 05/07/23 12:11 Family History Father Cancer, Onset Age: 57 Lung Mother Heart disease Osteopetrosis Sister Colon cancer Sister Breast cancer Sister Breast cancer Brother Cancer lung Surgical History H/O tubal ligation History of colonoscopy History of cystoscopy History of hysterectomy S/P dilation and curettage (~04/17/21) Social History household members: significant other number of children: 3 current occupational status: retired Smoking Status: Never smoker alcohol intake: never substance use type: does not use caffeine: Yes what type of physical activity do you participate in: walking seatbelt use: always do you feel safe at home: Yes additional social history: retired- [employer] ROS Constitutional Constitutional: Reports systems reviewed and no addt'l complaints, except as documented Eyes Eyes: Reports systems reviewed and no addt'l complaints, except as documented ENT HEENT: Reports systems reviewed and no addt'l complaints, except as documented Cardiovascular Cardiovascular: Reports systems reviewed and no addt'l complaints, except as documented Respiratory/Chest Respiratory/Chest: Reports systems reviewed and no addt'l complaints, except as documented Gastrointestinal Gastrointestinal: Reports systems reviewed and no addt'l complaints, except as documented Genitourinary Genitourinary: Reports systems reviewed and no addt'l complaints, except as documented Musculoskeletal Musculoskeletal: Reports systems reviewed and no addt'l complaints, except as documented Integumentary Integumentary: Reports other Details: Patient has significant hair loss in relation to chemotherapy. Neurologic Neurologic: Reports systems reviewed and no addt'l complaints, except as documented Psychiatric Psychiatric: Reports systems reviewed and no addt'l complaints, except as documented Endocrine Endocrinology: Reports systems reviewed and no addt'l complaints, except as documented Hematologic/Lymphatic Hematologic/Lymphatic: Reports systems reviewed and no addt'l complaints, except as documented Allergic/Immunologic Allergic/Immunologic: Reports systems reviewed and no addt'l complaints, except as documented Vital Signs Vital Signs Vital Signs: 05/07/23 12:07 05/07/23 15:32 05/07/23 17:05 Temperature 100 F H Temperature Source Temporal Pulse Rate 123 H 100 Pulse Strength Respiratory Rate 20 H 16 16 Blood Pressure 121/73 H 107/88 H Blood Pressure Mean 89 94 Blood Pressure Source Blood Pressure Position Blood Pressure Location Pulse Ox 98 99 95 Oxygen Delivery Method Room Air Room Air 05/07/23 17:05 05/07/23 17:07 05/07/23 18:07 Temperature 99 F 102.8 F H Temperature Source Temporal Oral Pulse Rate 102 H 102 H 113 H Pulse Strength Respiratory Rate 16 16 18 Blood Pressure 121/65 H 121/65 H 116/67 Blood Pressure Mean 83 83 83 Blood Pressure Source Monitor Blood Pressure Position Semi-Fowlers Blood Pressure Location Right Arm Pulse Ox 95 95 99 Oxygen Delivery Method Room Air Room Air 05/07/23 18:06 05/07/23 20:18 05/07/23 20:22 Temperature 99.7 F H Temperature Source Oral Pulse Rate 100 95 Pulse Strength Normal (2+) Respiratory Rate 16 Blood Pressure 99/73 Blood Pressure Mean 81 Blood Pressure Source Monitor Blood Pressure Position Semi-Fowlers Blood Pressure Location Right Arm Pulse Ox 97 Oxygen Delivery Method Room Air 05/08/23 05:22 05/08/23 08:21 05/08/23 08:24 Temperature 98.4 F Temperature Source Oral Pulse Rate 101 H 100 Pulse Strength Normal (2+) Respiratory Rate 16 Blood Pressure 104/68 Blood Pressure Mean 80 Blood Pressure Source Monitor Blood Pressure Position Semi-Fowlers Blood Pressure Location Right Arm Pulse Ox 98 Oxygen Delivery Method Room Air 05/08/23 08:27 Temperature 98.6 F Temperature Source Temporal Pulse Rate 100 Pulse Strength Respiratory Rate 18 Blood Pressure 104/62 Blood Pressure Mean 76 Blood Pressure Source Monitor Blood Pressure Position Semi-Fowlers Blood Pressure Location Right Arm Pulse Ox 100 Oxygen Delivery Method Room Air Weight Weight: 132 lb 4.438 oz Body Mass Index (BMI) 25.8 Physical Exam Const alert, oriented x3 and no apparent distress General Appearance: cooperative HEENT normocephalic and head/scalp atraumatic Eyes PERRL Neck no JVD Resp normal respiratory effort Cardio Cardio Narrative: Regular pulse rate palpable. GI non-distended Extremity Extremity Narrative: Right lower extremity: Patient has large effusion. Range of motion is 15 to 90 degrees on the knee. Patient tolerates passive range of motion. No overlying erythema. Stable to varus and valgus stress. 5 out of 5 knee extension strength. Left lower extremity: Patient has massive effusion. Range of motion is 15 to 90 degrees on the knee. Patient tolerates passive range of motion. No overlying erythema. Stable to varus and valgus stress. 5 out of 5 knee extension strength. Bilateral lower extremities are neurovascular intact distally. Skin no rashes or lesions noted and no wounds Neuro CN's II-XII intact bilaterally Psych mental status grossly normal Medical Records Data Attestation: I reviewed the patient's medical records Lab / Micro Data Attestation: I reviewed the patient's lab results. 05/08/23 05:25 05/08/23 05:25 Labs: Laboratory Results - last 24 hr 05/07/23 12:55: WBC 2.9 L, RBC 2.69 L, Hgb 7.7 L, Hct 24.6 L, MCV 91.4, MCH 28.6, MCHC 31.3 L, RDW Std Deviation 50.8 H, RDW Coeff of Harrison 15.5 H, Plt Count 187, MPV 8.9, Immature Gran % (Auto) 0.300, Neut % (Auto) 37.3 L, Lymph % (Auto) 33.0, [place]one % (Auto) 28.8 H, Eos % (Auto) 0.3, Baso % (Auto) 0.3, Absolute Neuts (auto) 1.1 L, Absolute Lymphs (auto) 0.95, Nucleated RBC % 0, Sodium 139, Potassium 3.0 L, Chloride 108 H, Carbon Dioxide 25.0, Anion Gap 6, BUN 15, Creatinine 0.74, Estim Creat Clear Calc 35.45, Est GFR (MDRD) Af Amer 99, Est GF R (MDRD) Non-Af 82, BUN/Creatinine Ratio 20.4 H, Glucose 129 H, Lactic Acid 1.0, Calcium 8.4 L, Total Bilirubin 0.40, AST 16, ALT 16, Alkaline Phosphatase 81, Total Protein 7.3, Albumin 2.7 L, Globulin 4.6 H, Albumin/Globulin Ratio 0.6 L 05/07/23 15:30: Urine Color Yellow, Urine Clarity Cloudy, Urine pH 7.0, Ur Specific [place] 1.005, Urine Protein 30 H, Urine Glucose (UA) Normal, Urine Ketones 15 H, Urine Occult Blood 50 H, Urine Nitrite Positive H, Urine Bilirubin Negative, Urine Urobilinogen Normal, Ur Leukocyte Esterase 500 H, Urine RBC 0-5 SEEN, Urine WBC >100 SEEN, Ur Squamous Epith Cells 0 SEEN, Urine Bacteria 3+, Urine Mucus 0 SEEN 05/08/23 05:25: WBC 3.9 L, RBC 3.43 L, Hgb 10.0 L, Hct 31.4 L, MCV 91.5, MCH 29.2, MCHC 31.8 L, RDW Std Deviation 52.0 H, RDW Coeff of Harrison 15.9 H, Plt Count 234, MPV 9.1, Immature Gran % (Auto) 0.800, Neut % (Auto) 35.6 L, Lymph % (Auto) 34.6, M[place]one % (Auto) 27.2 H, Eos % (Auto) 1.0, Baso % (Auto) 0.8, Absolute Neuts (auto) 1.4 L, Absolute Lymphs (auto) 1.36, Nucleated RBC % 0, Sodium 140, Potassium 3.7, Chloride 109 H, Carbon Dioxide 26.0, Anion Gap 5, BUN 11, Creatinine 0.75, Estim Creat Clear Calc 35.45, Est GFR (MDRD) Af Amer 97, Est GFR (MDRD) Non-Af 80, BUN/Creatinine Ratio 14.6, Glucose 110 H, Calcium 8.4 L, Phosphorus 2.6, Magnesium 2.0, Total Bilirubin 0.30, AST 17, ALT 14, Alkaline Phosphatase 82, Total Protein 7.2, Albumin 2.5 L, Globulin 4.7 H, Albumin/Globulin Ratio 0.5 L, TSH 4.72 H Micro: Microbiology 05/07/23 15:30 Urine, Clean Catch Urine Culture - Preliminary GNR lactose warp hanger Imagaing Radiology Impression Lumbar Spine MRI 05/07/23 12:27 IMPRESSION: 1. Multilevel degenerative changes, as described above. 2. Multilevel foraminal stenosis with impingement or nerve root compression 3. Mild central canal stenosis at L3-L4 and L4-L5 4. No marrow edema or fracture or compression deformity is present. No lytic or blastic or malignant appearing lesions are seen in the bony or soft tissue structures or in the distal spinal cord or nerve roots. There are no abnormal enhancing lesions of the bony or soft tissue structures. Electronically Signed: Austin Farley MD at 15:38 EST Reading Location ID and State: [facility] / [place] , Service support , Venous Doppler Study 05/07/23 14:43 Interpretation Summary Deep veins of the bilateral lower extremities are patent and compressible segmentally. There is no evidence of bilateral lower extremity deep vein thrombosis. The bilateral great saphenous veins appear patent and compressible segmentally. Ordering Physician: Malcolm Jacobsen Referring Physician: Daysi Oviedo Performed By: Ed Phillips RVT Knee X-Ray 05/08/23 08:46 IMPRESSION: Degenerative arthrosis with suprapatellar effusion. No demonstrated fracture Electronically Signed: Benoit Stark MD at 9:41 EST , Assessment & Plan Assessment/Plan (1) Bilateral knee effusions: PLAN: Natural history of the disease process intraoperative discussed with patient. I was able to review the x-rays and the left. Patient has subchondral sclerosis and joint space narrowing medially with a large effusion. Ultimately, I do feel the patient's exacerbation and large effusions are related to her chemotherapy. Seem to be related in timing as well. Each round of physical therapy has led to more significant knee pain and swelling. She is also been told from her oncologist that the Taxol has side effects of joint pain and swelling. We did discuss treatment options at this time patient would likely benefit from some form of steroid treatment. We discussed IV steroids administered by the hospitalist service versus aspiration and steroids done by injection. Based on the pain being bilateral in the patient desired to proceed without involving needles we have elected proceed with systemic steroids at this time. This will likely help patient in general with overall multiple joint pain. I discussed the plan with the primary service we will begin her on this. Will recheck her tomorrow to see what her responses. She was encouraged to follow-up in the office for long-term treatment of her joint pain. [facility] Office:
--- NOTE | 2023-05-08 10:00 | RAD_ITS ---
INDICATION: effusion EXAMINATION/TECHNIQUE: X-RAY - RIGHT XR Knee 3 Views 3 VIEWS COMPARISON: No relevant prior comparison study available FINDINGS: SOFT TISSUES: No soft tissue swelling or gas. No radiopaque foreign body. BONES/JOINTS: No acute fracture or subluxation.. Normal alignment. Moderate narrowing of the medial joint compartment with marginal degenerative spurs. Mild degenerative arthrosis of the patellofemoral joint. Small effusion in the suprapatellar joint space.. No sclerotic or destructive changes observed. RAD/Knee 3 Views IMPRESSION: 1. Degenerative arthrosis. 2. Small joint effusion. Electronically Signed: Mt Smith MD at 10:59 EST ,
[2023-05-08] MEDS: Ceftriaxone 1 GM/50 ML BAG IV (10:09)
[2023-05-08] MEDS: Enoxaparin 40 MG/0.4 ML Syringe SC (10:10)
[2023-05-08 14:00] VITALS: BP 103/58; PULSE 99; RESP 18; TEMP 37.3; O2SAT 100
[2023-05-08] MEDS: MethylPREDNISolone 125 MG/2 ML Vial 60 MG IV ×2 (14:33→21:07)
[2023-05-08 20:00] VITALS: BP 106/60; PULSE 84; RESP 16; TEMP 37.3; O2SAT 95
[2023-05-09 02:00] VITALS: BP 118/77; PULSE 83; RESP 16; TEMP 36.6; O2SAT 97
[2023-05-09] MEDS: MethylPREDNISolone 125 MG/2 ML Vial 60 MG IV (05:34)
[2023-05-09] MEDS: Acetaminophen 500 MG Tablet 1000 MG PO (05:34)
[2023-05-09 06:50] LABS: Absolute Lymphocyte Count 1.15 X10^3/uL (0.83-4.51); Absolute Neutrophil Count 2.8 X10^3/uL (2.0-7.7); Hematocrit 30.6 % (37-47); Lymphocyte # 1.15 X10^3/ul (0.83-4.51); Lymphocyte % 26.9 % (19-41); Mean Corp Hgb Conc 32.7 g/dL (32-36); Mean Corpuscular Hgb 29.3 pg (27.0-32.0); Mean Corpuscular Volume 89.7 fL (81-99); Monocyte# 0.26 X10^3/uL; Monocyte% 6.1 % (0-10); NRBC Flagged by Analyzer 0 % (0-5); Neutrophil # 2.82 X10^3/uL (2.7-7.7); Neutrophil % 66.1 % (47-70); Platelet Count 213 K/mm3 (150-450); RBC Distribution Width CV 15.4 % (11.6-14.6); RBC Distribution Width SD 50.6 fl (35.1-43.9); Red Blood Count 3.41 M/mm3 (4.2-5.4); White Blood Count 4.3 K/mm3 (4.4-11.0)
--- NOTE | 2023-05-09 07:07 | PCM.PN.HOSP ---
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 Patient admitted to improvement in the knee discomfort following initiation of steroid Objective Data Objective Data Vital Signs: Vital Signs Temp Pulse Resp BP Pulse Ox O2 Del Method 97.8 F 83 16 118/77 97 Room Air 05/09/23 02:00 05/09/23 02:00 05/09/23 02:00 05/09/23 02:00 05/09/23 02:00 05/09/23 02:00 Oxygen Delivery Method Room Air Weight: 60 kg Body Mass Index (BMI) 25.8 Intake & Output: Intake and Output for Last 24 Hours 05/07/23 05/08/23 05/09/23 23:59 23:59 23:59 Intake Total 1250 / 1250 1510 / 1510 Output Total 450 / 450 875 / 1375 750 / 750 Balance 800 / 800 635 / 135 -750 / -750 Medical Nutrition Assessment Dietitian: Malnutrition Criteria Met Start: 05/08/23 11:37 Freq: Status: Active Protocol: Document 05/08/23 11:37 RMA (Rec: 05/08/23 11:37 RMA [id number]) Nutrition Malnutrition Evidence of Malnutrition Exists Yes Malnutrition (severe): Chronic Evidenced By Suboptimal Energy Intake ( Severe),Weight Loss (Severe) Clinical Problem Chronic Disease or Condition Related Malnutrition Etiology Severe protein-calorie malnutrition in the context of chronic disease related to inadequate energy intake Signs/Symptoms as evidenced by ~12% unintentional weight loss x less than 6 months and average PO meeting less than 50% estimated nutrition needs x past 3-6 months Status Active Problem Recommendation Dietitian Recommendations/Changes Continue liberalized Regular diet and will add 240mL ensure plus high protein w/ breakfast tray. Additional ONS as needed to support weight and supplement PO at meals. Lab / Micro Data 05/09/23 06:35 05/09/23 06:35 Labs: Laboratory Results - last 24 hr 05/08/23 05:25: Sodium 140, Potassium 3.7, Chloride 109 H, Carbon Dioxide 26.0, Anion Gap 5, BUN 11, Creatinine 0.75, Estim Creat Clear Calc 35.45, Est GFR (MDRD) Af Amer 97, Est GFR (MDRD) Non-Af 80, BUN/Creatinine Ratio 14.6, Glucose 110 H, Calcium 8.4 L, Phosphorus 2.6, Magnesium 2.0, Total Bilirubin 0.30, AST 17, ALT 14, Alkaline Phosphatase 82, Total Protein 7.2, Albumin 2.5 L, Globulin 4.7 H, Albumin/Globulin Ratio 0.5 L, TSH 4.72 H 05/09/23 06:35: WBC 4.3 L, RBC 3.41 L, Hgb 10.0 L, Hct 30.6 L, MCV 89.7, MCH 29.3, MCHC 32.7, RDW Std Deviation 50.6 H, RDW Coeff of [place] 15.4 H, Plt Count 213, MPV 9.0, Immature Gran % (Auto) 0.900, Neut % (Auto) 66.1, Lymph % (Auto) 26.9, [place] % (Auto) 6.1, Eos % (Auto) 0.0, Baso % (Auto) 0.0, Absolute Neuts (auto) 2.8, Absolute Lymphs (auto) 1.15, Nucleated RBC % 0 Micro: Microbiology 05/07/23 15:30 Urine, Clean Catch Urine Culture - Preliminary GNR lactose foreign legal consultant Radiography Diagnostic Testing: Radiology Impression Knee X-Ray 05/08/23 08:46 IMPRESSION: Degenerative arthrosis with suprapatellar effusion. No demonstrated fracture Electronically Signed: Benoit Stark MD at 9:41 EST , Knee X-Ray 05/08/23 10:00 IMPRESSION: 1. Degenerative arthrosis. 2. Small joint effusion. Electronically Signed: Mt Smith MD at 10:59 EST , Physical Exam Narrative GENERAL: cooperative HEENT: Atraumatic; normocephalic EYES; Anicteric, Normal Conjunctiva NECK; supple, normal thyroid, RESPIRATORY: Diminished to auscultation CARDIOVASCULAR: Regular S1 S2, GI: soft, normoactive bowel sounds, : No Renal angle tenderness; EXTREMITIES: No edema, no clubbing, MUSCULOSKELETAL: Swelling involving both knees left greater than right NEURO: Awake; no lateralizing signs. SKIN: No Rash PSYCH; Flat affect Assessment & Plan Assessment/Plan (1) Leg weakness, bilateral: (2) Complicated UTI (urinary tract infection): (3) Bladder cancer: QUALIFIERS: Bladder location: trigone Qualified Code(s): C67.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 PLAN: Plan Patient is a 73-year-old lady with history of bladder CA currently on chemo admitted with progressive generalized weakness O2 with ambulation as well as significant pain involving both knees left greater than right 1. Bilateral joint pain and swelling ? Thought to be secondary to paclitaxel induced arthralgias. Admitted to regular nursing floor for symptom management. Case discussed with orthopedic surgery recommend Dr. Monteiro recommended initiation of steroid. Patient was offered joint aspiration hesitant to proceed at this point. MRI obtained in ED with multilevel degenerative changes and some varying levels of stenosis and impingement. Also requested for PT OT eval and treatment ? 05/09/2023 patient did admit to some improvement in the knee pain following administration of steroids 2. Acute tract infection ? Urinalysis obtained from from her urostomy bag. Culture sent started on ceftriaxone pending culture result ? 05/09/2023; Patient urine cultures so far positive for GNR lactose foreign legal consultant, [place] Count >100,000 CFU/mL identification and sensitivity to follow ? Final urine cultures positive for Klebsiella oxytocin on appropriate antibiotic therapy 3. Bladder CA ? Diagnosed in January 2023 started chemo 3 weeks prior to her admission patient is followed by Dr. Hua 4. Anemia and lymphopenia - Secondary to chronic disorder/chemo induced anemia monitoring CBC with differential and transfuse if patient becomes symptomatic or hemoglobin falls below 7 5. Hypokalemia ? Corrected per protocol 6. GERD ? On PPI 7. Ileostomy and nephrostomy tube -Supportive care 8. DVT prophylaxis ? SC Lovenox Time spent in the patient's overall evaluation,decision-making process, review of diagnostic data, adjustment of management, discussion with other providers, nursing nursing and ancillary staff involved in patient's care documentation, 35 Minutes Charges/Coding Visit Charges Inpatient E&M: 54468 Subs Hosp L2
[2023-05-09 07:25] LABS: Anion Gap 5 (5-15); BUN 18 mg/dL (7-18); BUN/Creat Ratio 22.5 RATIO (10-20); Calcium,Total 9.1 mg/dL (8.5-10.1); Chloride 112 mmol/L (98-107); EST Glomerular Filtration Rate 74 mL/min (>60); Est Glom Filt Rate - Afr Amer 90 mL/min (>60); Estimated Creatinine Clearance 44.32 ml/min; Glucose 216 mg/dL (74-106); Magnesium 2.4 mg/dL (1.6-2.6); Phosphorus 2.4 mg/dL (2.5-4.9); Sodium Level 139 mmol/L (136-145)
[2023-05-09 07:44] VITALS: BP 116/71; PULSE 91; RESP 16; TEMP 36.4; O2SAT 98
[2023-05-09] MEDS: Potassium Chloride Oral Tablet 10 MEQ PO (07:47)
[2023-05-09] MEDS: Ensure Plus High Protein 120 ML LIQUID PO (07:49)
--- NOTE | 2023-05-09 09:31 | PCM.PN.ORT ---
Subjective Subjective Patient is without acute events overnight. She reports after receiving the IV steroids she has had significant change in her knee pain. She feels the knee stiffness is beginning to improve. She was able to walk around the room this morning with therapy. She was barely able to transfer yesterday. Objective Data Objective Data Vital Signs: Vital Signs Temp Pulse Resp BP Pulse Ox O2 Del Method 97.6 F L 91 16 116/71 98 Room Air 05/09/23 07:44 05/09/23 07:44 05/09/23 07:44 05/09/23 07:44 05/09/23 07:44 05/09/23 08:38 Oxygen Delivery Method Room Air Weight: 132 lb 4.438 oz Body Mass Index (BMI) 25.8 Intake & Output: Intake and Output for Last 24 Hours 05/07/23 05/08/23 05/09/23 23:59 23:59 23:59 Intake Total 1250 / 1250 1510 / 1510 Output Total 450 / 450 875 / 1375 750 / 750 Balance 800 / 800 635 / 135 -750 / -750 Medical Nutrition Assessment Dietitian: Malnutrition Criteria Met Start: 05/08/23 11:37 Freq: Status: Active Protocol: Document 05/08/23 11:37 RMA (Rec: 05/08/23 11:37 RMA [id number]) Nutrition Malnutrition Evidence of Malnutrition Exists Yes Malnutrition (severe): Chronic Evidenced By Suboptimal Energy Intake ( Severe),Weight Loss (Severe) Clinical Problem Chronic Disease or Condition Related Malnutrition Etiology Severe protein-calorie malnutrition in the context of chronic disease related to inadequate energy intake Signs/Symptoms as evidenced by ~12% unintentional weight loss x less than 6 months and average PO meeting less than 50% estimated nutrition needs x past 3-6 months Status Active Problem Recommendation Dietitian Recommendations/Changes Continue liberalized Regular diet and will add 240mL ensure plus high protein w/ breakfast tray. Additional ONS as needed to support weight and supplement PO at meals. Lab / Micro Data Attestation: I reviewed the patient's lab results. 05/09/23 06:35 05/09/23 06:35 Labs: Laboratory Results - last 24 hr 05/09/23 06:35: WBC 4.3 L, RBC 3.41 L, Hgb 10.0 L, Hct 30.6 L, MCV 89.7, MCH 29.3, MCHC 32.7, RDW Std Deviation 50.6 H, RDW Coeff of [place] 15.4 H, Plt Count 213, MPV 9.0, Immature Gran % (Auto) 0.900, Neut % (Auto) 66.1, Lymph % (Auto) 26.9, [place] % (Auto) 6.1, Eos % (Auto) 0.0, Baso % (Auto) 0.0, Absolute Neuts (auto) 2.8, Absolute Lymphs (auto) 1.15, Nucleated RBC % 0, Sodium 139, Potassium 4.0, Chloride 112 H, Carbon Dioxide 22.0, Anion Gap 5, BUN 18, Creatinine 0.80, Estim Creat Clear Calc 44.32, Est GFR (MDRD) Af Amer 90, Est GFR (MDRD) Non-Af 74, BUN/Creatinine Ratio 22.5 H, Glucose 216 H, Calcium 9.1, Phosphorus 2.4 L, Magnesium 2.4 Micro: Microbiology 05/07/23 15:30 Urine, Clean Catch Urine Culture - Final Klebsiella oxytoca Radiography Diagnostic Testing: Radiology Impression Knee X-Ray 05/08/23 08:46 IMPRESSION: Degenerative arthrosis with suprapatellar effusion. No demonstrated fracture Electronically Signed: Benoit Stark MD at 9:41 EST , Knee X-Ray 05/08/23 10:00 IMPRESSION: 1. Degenerative arthrosis. 2. Small joint effusion. Electronically Signed: Mt Smith MD at 10:59 EST , Physical Exam Const alert, oriented x3 and no apparent distress General Appearance: cooperative, comfortable and well kempt Extremity Extremity Narrative: Right lower extremity: Knee with moderate effusion. Effusion improved from yesterday. Range of motion 5-100 improved from yesterday. Left lower extremity: Knee with moderate effusion. Effusion improved from yesterday. Range of motion 5-1 05, improved from yesterday. Assessment & Plan Assessment/Plan (1) Bilateral knee effusions: PLAN: Patient has bilateral radiographic evidence of knee osteoarthritis with joint space narrowing, subchondral sclerosis and marginal osteophyte formation as well as bony erosions particularly in the right knee. At this time I think she is having significant effusions in relation to her chemotherapy and potentially some gouty response. She is responded well to the IV steroids and is happy with her current response. At this time I recommended long-term follow-up with orthopedics but also to manage her side effects with her oncologist as well. No further orthopedic intervention is required at this time is call with any further questions or concerns. He is have the patient follow-up with our office in 2 to 3 weeks to establish long-term care. (2) Primary osteoarthritis of knees, bilateral:
--- NOTE | 2023-05-09 09:39 | PCM.DC.SUM ---
Providers Date of Admission: 05/07/23 Date of Discharge: 05/21/23 Primary Care Physician: Dr. Daysi Oviedo, DO Consultations 05/08/23 08:34 Consult: Orthopedics Routine Consulting Provider: Cleve Monteiro Reason for Consult: Left Knee swelling EMERGENT Consult: No MD Notified: Yes Date Notified: 05/08/23 Time Notified: 08:35 Method of Notification: Verbal Reason For Visit: LEG WEAKNESS, UTI Diagnosis Discharge Diagnosis (1) Leg weakness, bilateral: Status: Acute Code(s): R29.898 - Other symptoms and signs involving the musculoskeletal system (2) Complicated UTI (urinary tract infection): Status: Acute Code(s): N39.0 - Urinary tract infection, site not specified (3) Bladder cancer: Status: Acute Code(s): C67.9 - Malignant neoplasm of bladder, unspecified Qualifiers: Bladder location: trigone Qualified Code(s): C67.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 Plan Patient is a 73-year-old lady with history of bladder CA currently on chemo admitted with progressive generalized weakness O2 with ambulation as well as significant pain involving both knees left greater than right 1. Bilateral joint pain and swelling ? Thought to be secondary to paclitaxel induced arthralgias. Admitted to regular nursing floor for symptom management. Case discussed with orthopedic surgery recommend Dr. Monteiro recommended initiation of steroid. Patient was offered joint aspiration hesitant to proceed at this point. MRI obtained in ED with multilevel degenerative changes and some varying levels of stenosis and impingement. Also requested for PT OT eval and treatment ? 05/09/2023 patient did admit to some improvement in the knee pain following administration of steroids 2. Acute tract infection ? Urinalysis obtained from from her urostomy bag. Culture sent started on ceftriaxone pending culture result ? 05/09/2023; Patient urine cultures so far positive for GNR lactose certified registered nurse anesthetist, [place] Count >100,000 CFU/mL identification and sensitivity to follow ? Final urine cultures positive for Klebsiella oxytocin on appropriate antibiotic therapy 3. Bladder CA ? Diagnosed in January 2023 started chemo 3 weeks prior to her admission patient is followed by Dr. Hua 4. Anemia and lymphopenia - Secondary to chronic disorder/chemo induced anemia monitoring CBC with differential and transfuse if patient becomes symptomatic or hemoglobin falls below 7 5. Hypokalemia ? Corrected per protocol 6. GERD ? On PPI 7. Ileostomy and nephrostomy tube -Supportive care 8. DVT prophylaxis ? SC Lovenox Time spent in the patient's overall evaluation,decision-making process, review of diagnostic data, adjustment of management, discussion with other providers, nursing nursing and ancillary staff involved in patient's care documentation, 35 Minutes Medications at Discharge Home Medications alendronate 70 mg tablet (Fosamax) 70 mg PO DÍAZ osteoporosis 03/07/21 potassium chloride 10 mEq tablet,extended release 10 meq PO DAILY supplement 05/07/23 cefdinir 300 mg capsule 300 mg PO BID #14 caps 05/09/23 food supplemt, lactose-reduced 0.08 gram-1.5 kcal/mL oral liquid (Ensure Plus High Protein) 120 ml PO TIDCM 30 days #0 mL 05/09/23 prednisone 20 mg tablet 20 mg PO BID #14 tabs 05/09/23 sennosides 8.6 mg-docusate sodium 50 mg tablet (Stool Softener-Stimulant Laxative) 2 tab PO BID PRN PRN Constipation #0 tabs 05/09/23 Hospital Course Summary of Care Provided Minutes Spent on Discharge: 35 Physical Exam Narrative GENERAL: cooperative HEENT: Atraumatic; normocephalic EYES; Anicteric, Normal Conjunctiva NECK; supple, normal thyroid, RESPIRATORY: Diminished to auscultation CARDIOVASCULAR: Regular S1 S2, GI: soft, normoactive bowel sounds, : No Renal angle tenderness; EXTREMITIES: No edema, no clubbing, MUSCULOSKELETAL: Swelling involving both knees left greater than right NEURO: Awake; no lateralizing signs. SKIN: No Rash PSYCH; Flat affect Medical Records Data Medical Nutrition Assessment Dietitian: Malnutrition Criteria Met Start: 05/08/23 11:37 Freq: Status: Active Protocol: Document 05/08/23 11:37 RMA (Rec: 05/08/23 11:37 RMA [id number]) Nutrition Malnutrition Evidence of Malnutrition Exists Yes Malnutrition (severe): Chronic Evidenced By Suboptimal Energy Intake ( Severe),Weight Loss (Severe) Clinical Problem Chronic Disease or Condition Related Malnutrition Etiology Severe protein-calorie malnutrition in the context of chronic disease related to inadequate energy intake Signs/Symptoms as evidenced by ~12% unintentional weight loss x less than 6 months and average PO meeting less than 50% estimated nutrition needs x past 3-6 months Status Active Problem Recommendation Dietitian Recommendations/Changes Continue liberalized Regular diet and will add 240mL ensure plus high protein w/ breakfast tray. Additional ONS as needed to support weight and supplement PO at meals. Weight / BMI Weight Weight: 60 kg Body Mass Index (BMI) 25.8 ABG / Lab / Microbiology Data 05/09/23 06:35 05/09/23 06:35 Laboratory: Laboratory Results - last 24 hr 05/09/23 06:35: WBC 4.3 L, RBC 3.41 L, Hgb 10.0 L, Hct 30.6 L, MCV 89.7, MCH 29.3, MCHC 32.7, RDW Std Deviation 50.6 H, RDW Coeff of [place] 15.4 H, Plt Count 213, MPV 9.0, Immature Gran % (Auto) 0.900, Neut % (Auto) 66.1, Lymph % (Auto) 26.9, [place] % (Auto) 6.1, Eos % (Auto) 0.0, Baso % (Auto) 0.0, Absolute Neuts (auto) 2.8, Absolute Lymphs (auto) 1.15, Nucleated RBC % 0, Sodium 139, Potassium 4.0, Chloride 112 H, Carbon Dioxide 22.0, Anion Gap 5, BUN 18, Creatinine 0.80, Estim Creat Clear Calc 44.32, Est GFR (MDRD) Af Amer 90, Est GFR (MDRD) Non-Af 74, BUN/Creatinine Ratio 22.5 H, Glucose 216 H, Calcium 9.1, Phosphorus 2.4 L, Magnesium 2.4 Microbiology: Microbiology 05/07/23 15:30 Urine, Clean Catch Urine Culture - Final Klebsiella oxytoca Radiography Diagnostic Testing: Radiology Impression Knee X-Ray 05/08/23 08:46 IMPRESSION: Degenerative arthrosis with suprapatellar effusion. No demonstrated fracture Electronically Signed: Benoit Stark MD at 9:41 EST , Knee X-Ray 05/08/23 10:00 IMPRESSION: 1. Degenerative arthrosis. 2. Small joint effusion. Electronically Signed: Mt Smith MD at 10:59 EST , D/C Instructions Discharge Diet: No restrictions Discharge Activity: Return to Normal Activity Call your doctor if you observe: Fever of 101 or Higher, Shortness of breath, Fainting spells and Chest pain Meaningful Use Info Meaningful Use Diagnoses (Choose all that apply): None applicable Discharge Plan Admission Admit Date/Time: 05/07/23 17:24 Attending Provider: Rambo Liang Primary Care Provider: Daysi Oviedo Consulting Providers: Radha Wilcox; Cleve Monteiro Discharge Orders/Prescriptions Prescriptions: New cefdinir 300 mg capsule 300 mg PO BID Qty: 14 0RF prednisone 20 mg tablet 20 mg PO BID Qty: 14 0RF sennosides-docusate sodium [Stool Softener-Stimulant L[place]at] 8.6-50 mg Tablet 2 tab PO BID PRN PRN (Reason: Constipation) Qty: 0 0RF Ensure Plus High Protein 0.08 gram-1.5 kcal/mL Liquid 120 ml PO TIDCM 30 Days Qty: 0 0RF Continued alendronate [Fosamax] 70 mg tablet 70 mg PO DÍAZ potassium chloride 10 mEq tablet extended release 10 meq PO DAILY Referrals / Follow Up: Daysi Oviedo DO [Primary Care Provider] - Within 1 Week Disposition Disposition (needs filled in before D/C Order can be placed): Home, Self Care Charges/Coding Visit Charges Inpatient E&M: 18195 Disch Hosp >30min
[2023-05-09] MEDS: Ceftriaxone 1 GM/50 ML BAG IV (09:54)
--- NOTE | 2023-05-09 10:03 | CASEMGMT ---
CARINA CM into pt room, pt sitting up in bed. Pt denies any homegoing needs. [place] She states her dtr lives close and comes when pt bathes for safety. Pt states therapy actually makes her feel worse but she has exercises that she will do when she gets home. Denies any further needs.
--- NOTE | 2023-05-09 10:33 | CASEMGMT ---
Met with patient to complete RODGERS form. RODGERS form explained to patient who voiced understanding and signed form. Original form placed in pt?s chart and copy provided to?patient. Laurence Glass, Discharge Planning Asst
[2023-05-09 10:54] VITALS: BP 109/62; PULSE 81; RESP 16; TEMP 36.8; O2SAT 97
[2023-05-09] MEDS: 0.9% Saline Lock 10 ML Syringe IV (12:01)
== END 2023-05-09 18:21 | disposition home or self-care (01) ==
LOC: ED 16:39 → MS3 17:48
PROVIDERS: Admitting Provider Internal Medicine; Emergency Provider Emergency Medicine; PCP Family Medicine; Visit Provider Internal Medicine
DX: R29.898 Other symptoms and signs involving the musculoskeletal system (principal); D70.1 Agranulocytosis secondary to cancer chemotherapy; T83.518A Infection and inflammatory reaction due to other urinary catheter, initial encounter; Z93.2 Ileostomy status; M06.9 Rheumatoid arthritis, unspecified; C67.0 Malignant neoplasm of trigone of bladder; M25.462 Effusion, left knee; Z79.83 Long term (current) use of bisphosphonates; M25.461 Effusion, right knee; E87.6 Hypokalemia; T45.1X5A Adverse effect of antineoplastic and immunosuppressive drugs, initial encounter; D64.81 Anemia due to antineoplastic chemotherapy; E78.5 Hyperlipidemia, unspecified; B96.1 Klebsiella pneumoniae [K. pneumoniae] as the cause of diseases classified elsewhere; Z79.899 Other long term (current) drug therapy; K21.9 Gastro-esophageal reflux disease without esophagitis; D63.0 Anemia in neoplastic disease; M17.0 Bilateral primary osteoarthritis of knee; M79.604 Pain in right leg; M79.605 Pain in left leg; N39.0 Urinary tract infection, site not specified; Y73.8 Miscellaneous gastroenterology and urology devices associated with adverse incidents, not elsewhere classified
CPT/HCPCS: 36415; 72158; 73562; 80048; 80053; 81001; 83605; 83735; 84100; 84443; 85025; 87040; 87077; 87086; 87088; 87186; 93005; 93970; 96361; 96365; 96366; 96375; 96376; 97110; 97116; 97162; 97166; 97802; 99221; 99285; A9575; J7030; A4216; G0378

== ENCOUNTER 2024-03-05 14:00 | Emergency (ER) | payer MEDICARE, SELFPAY ==
[2024-03-05] VITALS (8 sets, daily range): BP systolic 83–117; BP diastolic 67–88; PULSE 89–121; RESP 18–22; TEMP 36.6–36.8; O2SAT 96–100; BMI 25.9
--- NOTE | 2024-03-05 14:26 | CT_ITS ---
We are attempting to reach an attending provider to discuss findings. An addendum with communication details will be sent when the communication is complete. STUDY: CTA CHEST REASON FOR EXAM: Female, 74 years old. Shortness of breath RADIATION DOSAGE (If Supplied By Facility): CTDIvol = ( 4.3 ) mGy, DLP = ( 162.30 ) mGycm TECHNIQUE: The examination was performed with the intravenous administration of IV 75mL Isovue-370. Post-processing of the angiographic images was performed, with multiplanar reformation and 3D reconstruction. The protocol utilizes one or more of the following dose reduction techniques: automated exposure control, adjustment of mA and/or kV according to patient size,and/or use of iterative reconstruction technique. COMPARISON: December 06, 2022 FINDINGS: Normal enhancement of the main pulmonary artery and right and left pulmonary arteries. Normal enhancement of the bilateral peripheral pulmonary arteries. Within the right lower lobe there are filling defects within subsegmental pulmonary arteries consistent with pulmonary emboli. Normal thoracic aorta and visualized great vessels. There is no demonstrated aortic dissection. There are calcifications of the coronary arteries. There is no evidence of right heart strain. There is a right-sided Mediport in place terminating within the superior vena cava.. Normal hilar regions. Normal visualized trachea and bronchi. There is minimal lower lobe dependent atelectasis. Normal chest wall structures. There are degenerative changes of thoracic spine. The limited images of the upper abdomen demonstrate stable pelvicaliectasis or cysts within the visualized kidneys. CT/CTA Chest W/WO Contrast IMPRESSION: Pulmonary emboli within right lower lobe subsegmental pulmonary arteries. Atherosclerosis. Minimal lower lobe dependent atelectasis. Electronically Signed: Ashley Bowles MD at 16:05 EDT ,
--- NOTE | 2024-03-05 14:26 | EKG12_ITS ---
Test Reason : SOB Blood Pressure : / mmHG Vent. Rate : 111 BPM Atrial Rate : 111 BPM P-R Int : 146 ms QRS Dur : 084 ms QT Int : 348 ms P-R-T Axes : 049 -21 043 degrees QTc Int : 473 ms Sinus tachycardia CAN NOT RULE OUT INVERIOR WALL AL Abnormal ECG Confirmed by Irvin Mojica ([id number]), editorial project manager ROXANNA WATERMAN ([id number]) on 03/08/2024 10:47:23 AM Referred By: Confirmed By:Irvin Mojica
--- NOTE | 2024-03-05 14:27 | EX.ED.DYSGE1 ---
HPI <ADWOA Ortega - Last Filed: 03/05/24 16:59> History of Present Illness Chief Complaint: Shortness of Breath Narrative Narrative: Patient is a 74-year-old female with history of bladder cancer, endometrial cancer is currently seen by Dr. Castillo, patient currently receives chemotherapy through a port in her right chest every 3 weeks. Over the last month, patient has been feeling more fatigued, which she perceived was from the chemo. Her heart rate has been greater than 100, she is feeling more short of breath, she is here for concern for pulmonary embolus. The oncologist did call and for the patient to get a CTA of the chest. Patient denies any specific pain. Patient dates she is feeling slightly better. She is currently taking ciprofloxacin for UTI. PFS <ADWOA Ortega - Last Filed: 03/05/24 16:59> [facility] Medical History Anxiety Bladder mass GERD (gastroesophageal reflux disease) History of cardiac murmur Hoarseness Hyperlipidemia Irregular heart beat Kidney stone Non-smoker Osteopenia Rheumatoid arthritis Home Medications ?Medication ?Instructions ?Recorded ?Last Taken ?Type alendronate 70 mg tablet (Fosamax) 70 mg PO DÍAZ osteoporosis 03/07/21 05/04/23 History potassium chloride 10 mEq 10 meq PO DAILY supplement 05/07/23 05/07/23 History tablet,extended release cefdinir 300 mg capsule 300 mg PO BID #14 caps 05/09/23 Unknown Rx food supplemt, lactose-reduced 120 ml PO TIDCM 30 days #0 mL 05/09/23 Unknown Rx 0.08 gram-1.5 kcal/mL oral liquid (Ensure Plus High Protein) prednisone 20 mg tablet 20 mg PO BID #14 tabs 05/09/23 Unknown Rx sennosides 8.6 mg-docusate sodium 2 tab PO BID PRN PRN Constipation 05/09/23 Unknown Rx 50 mg tablet (Stool #0 tabs Softener-Stimulant Laxative) apixaban 5 mg (74 tabs) tablets in 5 mg PO BID #74 tabs 03/05/24 Unknown Rx a dose pack (Eliquis DVT-PE Treat 30D Start) Allergy/AdvReac Type Severity Reaction Status Date / Time No Known Allergies Allergy Verified 03/05/24 14:08 Family History Father Cancer, Onset Age: 57 Lung Mother Heart disease Osteopetrosis Sister Colon cancer Sister Breast cancer Sister Breast cancer Brother Cancer lung Surgical History H/O tubal ligation History of colonoscopy History of cystoscopy History of hysterectomy S/P dilation and curettage (~04/17/21) Social History household members: significant other number of children: 3 current occupational status: retired Smoking Status: Never smoker alcohol intake: never substance use type: does not use caffeine: Yes what type of physical activity do you participate in: walking seatbelt use: always do you feel safe at home: Yes additional social history: retired- [employer] ROS <ADWOA Ortega - Last Filed: 03/05/24 16:59> ROS ED ROS Narrative Constitutional: Negative for fever, chills, weight loss. Positive for generalized weakness and fatigue Eyes: Negative for vision loss, vision change, double vision ENT: Negative for any sore throat, ear pain, congestion Cardiovascular: Negative for any chest pain, tightness, palpitations. Positive tachycardia Respiratory: Negative for any cough, sputum production, hemoptysis, dyspnea, dyspnea on exertion, orthopnea Gastrointestinal: Negative for any abdominal pain, nausea, vomiting, diarrhea, constipation, blood in stool, blood in vomit : Negative for any urinary frequency, dysuria, retention, blood in urine Muscle skeletal: Negative for any neck pain, back pain Neurological: Negative for any headache, syncope, dizziness Skin: Negative for any rashes, itching, abrasions, lacerations Psychiatric: Negative for any depression, anxiety, stress, suicidal ideation, homicidal ideation Hematologic: Negative for any excessive bruising, easy bleeding EXAM <ADWOA Ortega - Last Filed: 03/05/24 16:59> Physical Exam Narrative Exam Narrative: Vital signs reviewed. HEET: Head normocephalic atraumatic, TMs clear bilaterally. Posterior pharynx is clear, moist mucous membranes. Nares clear bilaterally. Neck: Supple with no lymphadenopathy or tenderness. No signs of meningismus. Cardiac: Tachycardic rate and rate of 115 no murmurs gallops or rubs, equal peripheral pulses bilaterally. Respiratory: Lungs clear to auscultation bilaterally. No chest tenderness. Abdomen: Soft, nontender, nondistended. No abdominal bruit or pulsatile masses. No hepatosplenomegaly Extremities: No peripheral edema, no signs of gross trauma or deformity. Active full range of motion of all extremities. Neuro: Cranial nerves II through XII intact, no focal neurological deficits. Skin: Clean dry and intact with no rash, purpura, petechiae, vesicles or pustules. Backs/flank: No CVA tenderness, no midline spinal tenderness, no deformity. Psych: Normal mood and affect. No SI, HI or acute psychosis. Const Vital Signs: 03/05/24 14:03 03/05/24 14:26 03/05/24 14:42 Temperature 98.1 F Temperature Source Oral Pulse Rate 121 H Respiratory Rate 22 H Blood Pressure 117/88 H Blood Pressure Mean 97 Pulse Ox 98 97 Oxygen Delivery Method Room Air Room Air 03/05/24 15:02 03/05/24 16:00 Temperature 98.2 F Temperature Source Oral Pulse Rate 101 H 89 Respiratory Rate 18 19 H Blood Pressure 83/67 L Blood Pressure Mean 72 Pulse Ox 100 98 Oxygen Delivery Method Room Air Room Air <Dr. Bibi De Guzman DO - Last Filed: 03/10/24 08:34> Physical Exam Const Vital Signs: 03/05/24 14:03 03/05/24 14:26 03/05/24 14:42 Temperature 98.1 F Temperature Source Oral Pulse Rate 121 H Respiratory Rate 22 H Blood Pressure 117/88 H Blood Pressure Mean 97 Pulse Ox 98 97 Oxygen Delivery Method Room Air Room Air 03/05/24 15:02 03/05/24 16:00 Temperature 98.2 F Temperature Source Oral Pulse Rate 101 H 89 Respiratory Rate 18 19 H Blood Pressure 83/67 L Blood Pressure Mean 72 Pulse Ox 100 98 Oxygen Delivery Method Room Air Room Air MDM <ADWOA Ortega - Last Filed: 03/05/24 16:59> MDM Lab Data Labs: Laboratory Results - last 24 hr 03/05/24 14:34 WBC 6.2 RBC 3.58 L Hgb 10.8 L Hct 34.3 L MCV 95.8 MCH 30.2 MCHC 31.5 L RDW Std Deviation 59.6 H RDW Coeff of Harrison 17.0 H Plt Count 234 MPV 10.1 Immature Gran % (Auto) 1.300 H Neut % (Auto) 71.0 H Lymph % (Auto) 18.4 L Meagher % (Auto) 8.2 Eos % (Auto) 0.6 Baso % (Auto) 0.5 Absolute Neuts (auto) 4.4 Absolute Lymphs (auto) 1.14 Nucleated RBC % 0 PT 15.2 H INR 1.2 Sodium 138 Potassium 3.4 L Chloride 108 H Carbon Dioxide 22.0 Anion Gap 8 BUN 20 H Creatinine 0.95 Estim Creat Clear Calc 41.50 Est GFR (MDRD) Af Amer 74 Est GFR (MDRD) Non-Af 61 BUN/Creatinine Ratio 21.0 H Glucose 98 Calcium 8.8 Troponin I High Sens 4 B-Natriuretic Peptide 15.6 TSH 1.130 Radiography Diagnostic Testing: Clinical Impression(s) from Imaging Studies Chest CTA 03/05/24 14:26 IMPRESSION: Pulmonary emboli within right lower lobe subsegmental pulmonary arteries. Atherosclerosis. Minimal lower lobe dependent atelectasis. Electronically Signed: Ashley Bowles MD at 16:05 EDT , ADDENDUM: 03/05/24 1615 IMPRESSION: Pulmonary emboli within right lower lobe subsegmental pulmonary arteries. Atherosclerosis. Minimal lower lobe dependent atelectasis. N.B. : The above Results were Read Back by Ashley Bowles MD to Bibi Wiley , [employer] BLE[employer], and understanding confirmed on 03/05/2024 16:09:05 (ET). Electronically Signed: Ashley Bowles MD at 16:05 EDT , EKG EKG shows sinus tachycardia: Attestation: I personally reviewed and interpreted this EKG as follows: Comments: Sinus tachycardia with rate 111, NM interval 146 ms, QRS duration 84 ms, no acute ST elevation, no acute infarct noted. Treatment and Re-Evaluation :: Differential diagnosis includes however is not limited to: ACS, NC, reactive tachycardia, anemia, dehydration, pulmonary embolus Patient appears generally well, vital signs are stable, patient is nontoxic-appearing. Presenting to the emergency department with complaints of fast heart rate, history of being on chemotherapy secondary to endometrial cancer, concern for PE. Patient will receive a cardiac workup including CTA of the chest to rule out a pulmonary embolus, troponin, BNP, CBC, BMP. IV fluids will be given. Patient was tested for COVID-19 and influenza that was negative. Patient also tested for strep throat that was negative. Patient CBC shows a stable anemia at 10.8, no leukocytosis, PT shows a slight elevation of 15.2 INR negative. Patient's chemistries show no acute process. TSH within normal limits, BNP was unremarkable, troponin was negative. Patient CT scan of the chest showed pulmonary emboli within the right lower lobe subsegmental pulmonary arteries, minimal lower lobe dependent atelectasis. Secondary this finding, the patient be placed on Eliquis, she does have normal kidney function. We did reach out to the oncologist, he is agreeable. The patient was ambulated around the department, heart rate was around 110, however patient did not drop below 93%. At this time, I do believe the patient is stable for discharge. She will be given the Eliquis starter pack. She is instructed to return for any chest pain, shortness of breath, syncope. All questions were answered, stable for discharge. <Dr. Bibi De Guzman, DO - Last Filed: 03/10/24 08:34> [facility] Lab Data Labs: Laboratory Results - last 24 hr 03/05/24 14:34 WBC 6.2 RBC 3.58 L Hgb 10.8 L Hct 34.3 L MCV 95.8 MCH 30.2 MCHC 31.5 L RDW Std Deviation 59.6 H RDW Coeff of Harrison 17.0 H Plt Count 234 MPV 10.1 Immature Gran % (Auto) 1.300 H Neut % (Auto) 71.0 H Lymph % (Auto) 18.4 L Meagher % (Auto) 8.2 Eos % (Auto) 0.6 Baso % (Auto) 0.5 Absolute Neuts (auto) 4.4 Absolute Lymphs (auto) 1.14 Nucleated RBC % 0 PT 15.2 H INR 1.2 Sodium 138 Potassium 3.4 L Chloride 108 H Carbon Dioxide 22.0 Anion Gap 8 BUN 20 H Creatinine 0.95 Estim Creat Clear Calc 41.50 Est GFR (MDRD) Af Amer 74 Est GFR (MDRD) Non-Af 61 BUN/Creatinine Ratio 21.0 H Glucose 98 Calcium 8.8 Troponin I High Sens 4 B-Natriuretic Peptide 15.6 TSH 1.130 Radiography Diagnostic Testing: Clinical Impression(s) from Imaging Studies Chest CTA 03/05/24 14:26 IMPRESSION: Pulmonary emboli within right lower lobe subsegmental pulmonary arteries. Atherosclerosis. Minimal lower lobe dependent atelectasis. Electronically Signed: Ashley Bowles MD at 16:05 EDT , ADDENDUM: 03/05/24 1615 IMPRESSION: Pulmonary emboli within right lower lobe subsegmental pulmonary arteries. Atherosclerosis. Minimal lower lobe dependent atelectasis. N.B. : The above Results were Read Back by Ashley Bowles MD to Bibi Wiley , RENETTA, and understanding confirmed on 03/05/2024 16:09:05 (ET). Electronically Signed: Ashley Bowles MD at 16:05 EDT , Treatment and Re-Evaluation :: Differential diagnosis includes however is not limited to: ACS, NC, reactive tachycardia, anemia, dehydration, pulmonary embolus Patient appears generally well, vital signs are stable, patient is nontoxic-appearing. Presenting to the emergency department with complaints of fast heart rate, history of being on chemotherapy secondary to endometrial cancer, concern for PE. Patient will receive a cardiac workup including CTA of the chest to rule out a pulmonary embolus, troponin, BNP, CBC, BMP. IV fluids will be given. Patient was tested for COVID-19 and influenza that was negative. Patient also tested for strep throat that was negative. Patient CBC shows a stable anemia at 10.8, no leukocytosis, PT shows a slight elevation of 15.2 INR negative. Patient's chemistries show no acute process. TSH within normal limits, BNP was unremarkable, troponin was negative. Patient CT scan of the chest showed pulmonary emboli within the right lower lobe subsegmental pulmonary arteries, minimal lower lobe dependent atelectasis. Secondary this finding, the patient be placed on Eliquis, she does have normal kidney function. We did reach out to the oncologist, he is agreeable. The patient was ambulated around the department, heart rate was around 110, however patient did not drop below 93%. At this time, I do believe the patient is stable for discharge. She will be given the Eliquis starter pack. She is instructed to return for any chest pain, shortness of breath, syncope. All questions were answered, stable for discharge. I have personally performed a face to face assessment of the patient and have reviewed the BRENNA Note. I performed a substantive portion of the visit including all aspects of the following. My mann findings include: History is patient is a very pleasant 74-year-old female with history of metastatic endometrial cancer presenting for rule out PE by vaccination of her oncologist. Patient has had worsening tachycardia and notes for the past 2 days she has has been feeling well but is a bit vague on the symptoms otherwise. She denies any new shortness of breath or difficulty breathing. Denies any swelling of her legs. She has a history of tachycardia but has been worse lately. Denies chest pain. Physical exam relatively benign. She is mildly tachycardic. CTA of the chest does show right lower lobe subsegmental pulmonary emboli. Case is discussed with her oncologist and patient will be started on Eliquis. Is given a coupon code for the Eliquis starter pack and first dose in the emergency room. Patient did not desaturate with ambulation. I feel that patient is stable for outpatient treatment and management of her PE. Will follow closely with her trademark paralegal/oncologist. Discussed the risk of bleeding associated with anticoagulation versus benefits of treating her PE. Patient verbalized agreement or stands plan. Discharged home in stable condition. Other additions or changes: [None] Discharge Plan Triage Chief Complaint: Shortness of Breath ED Midlevel Provider: Lauri Garcia ED Provider: Bibi De Guzman Dx/Rx/DC Orders Clinical Impression: Tachycardia, Pulmonary embolism, History of endometrial cancer Instructions: Pulmonary Embolism, Embolism Pulmonary Dc Prescriptions: New Eliquis DVT-PE Treat 30D Start 5 mg (74 tabs) tablets,dose pack 5 mg PO BID Qty: 74 0RF No Action alendronate [Fosamax] 70 mg tablet 70 mg PO DÍAZ potassium chloride 10 mEq tablet extended release 10 meq PO DAILY cefdinir 300 mg capsule 300 mg PO BID Qty: 14 0RF prednisone 20 mg tablet 20 mg PO BID Qty: 14 0RF sennosides-docusate sodium [Stool Softener-Stimulant Laxat] 8.6-50 mg Tablet 2 tab PO BID PRN PRN (Reason: Constipation) Qty: 0 0RF Ensure Plus High Protein 0.08 gram-1.5 kcal/mL Liquid 120 ml PO TIDCM 30 Days Qty: 0 0RF Primary Care Provider: Daysi Oviedo Referrals: Daysi Oviedo DO [Primary Care Provider] - Lauri Castillo DO [Med Staff - Active Staff] - Activity Restrictions/Additional Instructions: You do have a pulmonary embolus, you will need to follow-up with your oncologist. You will start the starter pack today, you take Eliquis 10 mg twice a day for 1 week, then 5 mg twice a day thereafter. You need to follow-up outpatient. Return for any worsening shortness of breath, passing out episodes. Print Language: Nepali Disposition Disposition: Home, Self Care Discharge Date/Time: 03/05/24 17:20
[2024-03-05] MEDS: 0.9% Normal Saline (1000mL) 1,000 ML 999 ML IV (14:33)
[2024-03-05 14:50] LABS: Absolute Lymphocyte Count 1.14 X10^3/uL (0.83-4.51); Absolute Neutrophil Count 4.4 X10^3/uL (2.0-7.7); Basophil# 0.03 X10^3/uL; Basophil% 0.5 % (0-1); Eosinophil# 0.04 X10^3/uL; Eosinophils% 0.6 % (0-5); Hematocrit 34.3 % (37-47); Hemoglobin 10.8 g/dL (12.0-15.0); Lymphocyte # 1.14 X10^3/ul (0.83-4.51); Lymphocyte % 18.4 % (19-41); Mean Corp Hgb Conc 31.5 g/dL (32-36); Mean Corpuscular Hgb 30.2 pg (27.0-32.0); Mean Corpuscular Volume 95.8 fL (81-99); Mean Platelet Vol. 10.1 fl (6.2-12.0); Monocyte# 0.51 X10^3/uL; Monocyte% 8.2 % (0-10); NRBC Flagged by Analyzer 0 % (0-5); Neutrophil # 4.39 X10^3/uL (2.7-7.7); Platelet Count 234 K/mm3 (150-450); RBC Distribution Width SD 59.6 fl (35.1-43.9); Red Blood Count 3.58 M/mm3 (4.2-5.4); White Blood Count 6.2 K/mm3 (4.4-11.0)
[2024-03-05 15:09] LABS: Anion Gap 8 (5-15); BUN 20 mg/dL (7-18); Calcium,Total 8.8 mg/dL (8.5-10.1); Chloride 108 mmol/L (98-107); Creatinine, Serum 0.95 mg/dL (0.55-1.02); EST Glomerular Filtration Rate 61 mL/min (>60); Est Glom Filt Rate - Afr Amer 74 mL/min (>60); Glucose 98 mg/dL (74-106); Potassium 3.4 mmol/L (3.5-5.1); Sodium Level 138 mmol/L (136-145); Troponin-I HS 4 pg/mL (3.0-54.0)
[2024-03-05 15:11] LABS: International Normalized Ratio 1.2; Prothrombin Time (Protime)PT. 15.2 SECONDS (11.7-14.9)
[2024-03-05 15:19] LABS: BNP,B-Type NATRIURETIC PEPTIDE 15.6 pg/mL (0-100)
[2024-03-05] MEDS: APIXABAN 5 MG TABLET 10 MG PO (16:59)
== END 2024-03-05 17:20 | disposition home or self-care (01) ==
PROVIDERS: Nurse Practitioner; Emergency Provider Emergency Medicine; PCP Family Medicine; Visit Provider Emergency Medicine
DX: I26.99 Other pulmonary embolism without acute cor pulmonale (principal); R06.02 Shortness of breath; E78.5 Hyperlipidemia, unspecified; R00.0 Tachycardia, unspecified; Z85.89 Personal history of malignant neoplasm of other organs and systems; Z85.51 Personal history of malignant neoplasm of bladder; Z92.21 Personal history of antineoplastic chemotherapy; Z98.51 Tubal ligation status; Z90.710 Acquired absence of both cervix and uterus
CPT/HCPCS: 71275; 80048; 83880; 84443; 84484; 85025; 85610; 93005; 96360; 96361; 99283; J7030; Q9967; A4216